=== PATIENT | female | born 1940 | race Caucasian/White ===

== ENCOUNTER 2019-02-05 11:00 | Inpatient (IN) | payer MEDICARE, MEDICAID ==
[~2019-02-05] VITALS: Ht 165.1 cm; Wt 50.3 kg
[2019-02-05] MEDS ORDERED: SOD CHLORIDE 0.9% 1,000 ML IV STA (11:07)
[2019-02-05] MEDS ORDERED: HALOPERIDOL 5 MG INJ ONE (11:09)
[2019-02-05] MEDS ORDERED: HALOPERIDOL 5 MG INJ IV ONE (11:30)
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
[2019-02-05] MEDS ORDERED: ACETAMINOPHEN 325 MG TAB PO PRN ×2 (14:00→16:00)
[2019-02-05] MEDS ORDERED: ONDANSETRON 4 MG INJ IV PRN ×2 (14:00→16:00)
[2019-02-05] MEDS ORDERED: LORAZEPAM 2 MG INJ IV ONE (14:00)
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
[2019-02-05] MEDS ORDERED: DOCUSATE SODIUM 100 MG CAP PO PRN (16:00)
[2019-02-05] MEDS ORDERED: LORAZEPAM 2 MG INJ IV PRN ×2 (16:00→17:00)
[2019-02-05] MEDS ORDERED: MAGNESIUM HYDROXIDE 30ML CUP PO PRN (16:00)
[2019-02-05] MEDS ORDERED: NACL 0.9% 3 ML SYG IV SCH (16:00)
[2019-02-05 18:43] VITALS: BP 123/68; PULSE 66; RESP 18
[2019-02-05 20:00] VITALS: BP 156/83; PULSE 123; RESP 20; Ht 165.1 cm; Wt 50.3 kg
[2019-02-05] MEDS: DEXTROSE 5%-0.45% NACL 1,000 ML IV SCH (20:14)
[2019-02-05] MEDS: FAMOTIDINE 20 MG INJ IV SCH (20:17)
[2019-02-05] MEDS: CHLORHEXIDINE GLUCONATE 15 ML UD CUP MT SCH (20:17)
[2019-02-05 23:49] VITALS: BP 155/95; PULSE 130; RESP 20
[2019-02-06] MEDS: ACETAMINOPHEN 650 MG SUPP PR PRN (00:53)
[2019-02-06] MEDS ORDERED: VANCOMYCIN IV PER PHARMACY XX SCH (03:30)
[2019-02-06] MEDS: LEVOFLOXACIN 750MG/D5W (PMX) 150 ML IVPB SCH (03:38)
[2019-02-06 04:00] VITALS: BP 112/64; PULSE 115; RESP 20
[2019-02-06] MEDS ORDERED: VANCOMYCIN 1 GM 250 ML IVPB ONE (05:00)
[2019-02-06] MEDS: DEXTROSE 5%-0.45% NACL 1,000 ML IV SCH ×2 (05:48→15:24)
[2019-02-06] MEDS ORDERED: SOD CHLORIDE 0.9% 500 ML IV ONE (07:00)
[2019-02-06 07:40] VITALS: BP 116/92; PULSE 100; RESP 18
[2019-02-06] MEDS: CHLORHEXIDINE GLUCONATE 15 ML UD CUP MT SCH ×2 (08:12→21:08)
[2019-02-06] MEDS: ENOXAPARIN 40 MG/0.4 ML SYG SC SCH (08:15)
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
--- NOTE | 2019-02-06 10:09 | CONS ---
DATE OF ADMISSION: 02/05/2019 DATE OF CONSULTATION: 02/06/2019 TYPE OF CONSULTATION: Infectious Disease. REASON FOR CONSULTATION: Antibiotic management. HISTORY OF PRESENT ILLNESS: Elizabeth Nelson is an 78-year-old female with altered level of consciousness, po ssible seizure activity. She presents to the emergency room. She is to set disheveled and neglected according to the EMS. The patient does not have a known seizure disorder. She has a history of dem entia. Further history is extremely limited. PAST MEDICAL HISTORY: Positive for dementia. FAMILY HISTORY: Noncontributory. SOCIAL HISTORY: She does not smoke, drink or abuse drugs. ALLERGIES: NONE TO PENICILLIN, SULFA OR FOODS. MEDICATIONS: Per chart. REVIEW OF SYSTEMS: As per HPI. PHYSICAL EXAMINATION: GENERAL: She is cachectic, agitated, elderly female. VITAL SIGNS: Stable. She is afebrile. SKIN: Without generalized rash. HEENT: Within normal limits. She has an abrasion on her right lower lip. NECK: Supple. LYMPH NODES: None palpable. CHEST: Decreased breath sounds at the bases. HEART: Without murmur or gallop. ABDOMEN: Soft, nontender, without organosplenomegaly or masses. EXTREMITIES: Without cyanosis, clubbing, or edema. RECTAL AND GENITAL: Deferred. NEUROLOGIC: The patient has dementia. No focal deficits. ANCILLARY LABORATORY DATA: On admission, white count 6.9, H and H 11.9 and 34.1, platelet count 136, 000. BUN and creatinine 18/0.81, glucose of 136. She has 69% neutrophils. IMAGING: Chest x-ray shows clear lung rhodes with no evidence of pneumothorax. CT of the brain show s severe motion artifact, no evidence of acute intracranial abnormality. IMPRESSION AND PLAN: Altered levels of consciousness. Her urine is negative for leukocyte esterase and for nitrites. At this point, She was placed on vancomycin and Levaquin for the possibility of se psis and I imagine possible aspiration pneumonia; however, there is no evidence right now for that. We will continue her on vancomycin and Levaquin for the time being. Blood cultures were ordered. Ur ine culture was ordered. We will observe the patient. Dictated By: URSZULA ALTAMIRANO MD, JD/BRITTNEY Conf#: [id number] DID#: [id number] CC: NICHOLAS VALENCIA MD;*[facility]*
[2019-02-06 11:26] VITALS: BP 121/59; PULSE 100; RESP 19
--- NOTE | 2019-02-06 12:24 | PN ---
Date/Time of Note Date/Time of Note DATE: 02/06/19 TIME: 12:19 Assessment/Plan VTE Prophylaxis Risk score (from [facility])>0 risk: 4 SCD applied (from Ns): Yes Pharmacological prophylaxis: LMWH Lines/Catheters IV Catheter Type (from [facility]): Saline Lock Assessment/Plan Assessment/Plan 1. Acute encephalopathy- improving - Unsure etiology but patient did spike a fever and hanson cultures obtained. Sta rted on broad spectrum antibiotics - Neurology consultation appreciated. MRI pending and requesting LP as well - monitor for improvement in mental status 2. Anemia- stable - hgb stable 3. Alzheimer's dementia 4. Code status - discussion held with granddaughter and requesting patient be made DNR/DNI 5. Disposition - Awaiting MRI and repeat CT results pending. Continue current plan of care Result Diagram: 02/06/1914 02/06/1914 Results 24hrs Laboratory Tests Test 02/05/19 16:15 02/06/19 05:14 Urine Color YELLOW Urine Clarity SLIGHTLY CLOUDY A Urine pH 5.0 Urine Specific [place] 1.015 Urine Ketones NEGATIVE Urine Nitrite NEGATIVE Urine Bilirubin NEGATIVE Urine Urobilinogen NEGATIVE Urine Leukocyte Esterase NEGATIVE Urine Microscopic RBC 1 Urine Microscopic WBC 1 Urine Bacteria FEW A Urine Mucus FEW A Urine Hemoglobin NEGATIVE Urine Glucose NEGATIVE Urine Total Protein NEGATIVE Urine Opiates Screen Negative Urine Barbiturates Negative Urine Amphetamines Screen Negative Urine Benzodiazepines Screen Negative Urine Cocaine Screen Negative Urine Cannabinoids Negative White Blood Count 9.7 # Red Blood Count 3.78 L Hemoglobin 12.3 Hematocrit 34.7 L Mean Corpuscular Volume 91.8 Mean Corpuscular Hemoglobin 32.5 Mean Corpuscular Hemoglobin Concent 35.4 Red Cell Distribution Width 12.3 Platelet Count 105 #L Mean Platelet Volume 11.2 H Immature Granulocytes % 0.700 H Neutrophils % 88.0 H Lymphocytes % 6.2 L Monocytes % 4.8 Eosinophils % 0.1 Basophils % 0.2 Nucleated Red Blood Cells % 0.0 Immature Granulocytes # 0.070 H Neutrophils # 8.6 H Lymphocytes # 0.6 L Monocytes # 0.5 Eosinophils # 0.0 Basophils # 0.0 Nucleated Red Blood Cells # 0.0 Sodium Level 140 Potassium Level 4.8 Chloride Level 107 Carbon Dioxide Level 24 Anion Gap 9 Blood Urea Nitrogen 16 Creatinine 0.84 Est Glomerular Filtrat Rate mL/min Glucose Level 140 Lactic Acid Level 4.3 *H Calcium Level 8.6 Magnesium Level 1.9 Subjective 24 Hr Interval Summary Free Text/Dictation Patient responding im okay when asked how she is feeling. Not answering any further questions or following commands. Exam/Review of Systems Exam Vitals Vital Signs Date Temp Pulse Resp B/P (MAP) Pulse Ox O2 O2 Flow FiO2 Time Delivery Rate 02/06/19 98.1 100 19 121/59 96 11:26 (79) 02/06/19 Nasal 2.0 07:50 Cannula Intake and Output 02/05/19 02/05/19 02/06/19 1515:00 23:00 07:00 IntakeIntake Total 0 ml BalanceBalance 0 ml Exam General: No acute distress. frail, cachetic elderly lady with arms contracted Neck: Supple Chest: Nontender Lungs: Clear to auscultation bilaterally no crackles rales or wheezing Heart: Normal S1-S2, Regular rhythm and tachycardia. No murmur, S3, or S4 Abdomen: Soft , nontender to palpation, nondistended , bowel sounds are present. No guarding no rebound tenderness Extremities: muscle wasting Results Results 24hrs Laboratory Tests Test 02/05/19 16:15 02/06/19 05:14 Urine Color YELLOW Urine Clarity SLIGHTLY CLOUDY A Urine pH 5.0 Urine Specific [place] 1.015 Urine Ketones NEGATIVE Urine Nitrite NEGATIVE Urine Bilirubin NEGATIVE Urine Urobilinogen NEGATIVE Urine Leukocyte Esterase NEGATIVE Urine Microscopic RBC 1 Urine Microscopic WBC 1 Urine Bacteria FEW A Urine Mucus FEW A Urine Hemoglobin NEGATIVE Urine Glucose NEGATIVE Urine Total Protein NEGATIVE Urine Opiates Screen Negative Urine Barbiturates Negative Urine Amphetamines Screen Negative Urine Benzodiazepines Screen Negative Urine Cocaine Screen Negative Urine Cannabinoids Negative White Blood Count 9.7 # Red Blood Count 3.78 L Hemoglobin 12.3 Hematocrit 34.7 L Mean Corpuscular Volume 91.8 Mean Corpuscular Hemoglobin 32.5 Mean Corpuscular Hemoglobin Concent 35.4 Red Cell Distribution Width 12.3 Platelet Count 105 #L Mean Platelet Volume 11.2 H Immature Granulocytes % 0.700 H Neutrophils % 88.0 H Lymphocytes % 6.2 L Monocytes % 4.8 Eosinophils % 0.1 Basophils % 0.2 Nucleated Red Blood Cells % 0.0 Immature Granulocytes # 0.070 H Neutrophils # 8.6 H Lymphocytes # 0.6 L Monocytes # 0.5 Eosinophils # 0.0 Basophils # 0.0 Nucleated Red Blood Cells # 0.0 Sodium Level 140 Potassium Level 4.8 Chloride Level 107 Carbon Dioxide Level 24 Anion Gap 9 Blood Urea Nitrogen 16 Creatinine 0.84 Est Glomerular Filtrat Rate mL/min Glucose Level 140 Lactic Acid Level 4.3 *H Calcium Level 8.6 Magnesium Level 1.9 Medications Medication Current Medications Ondansetron HCl (Zofran Inj) 4 mg ER BRIDGE PRN IV NAUSEA/VOMITING; Start 02/05/19 at 14:00; Stop 02/06/19 at 13:59 Acetaminophen (Tylenol Tab) 650 mg ER BRIDGE PRN PO .MILD PAIN 1-3 OR TEMP; Start 02/05/19 at 14:00; Stop 02/06/19 at 13:59 Dextrose/Sodium Chloride 1,000 ml @ 75 mls/hr [id number] IV Last administered on 02/06/19at 05:48; Admin Dose 75 MLS/HR; Start 02/05/19 at 15:42 IV Flush (NS 3 ml) 3 ml PER PROTOCOL IV ; Start 02/05/19 at 16:00 Ondansetron HCl (Zofran Inj) 4 mg Q6H PRN IV NAUSEA/VOMITING; Start 02/05/19 at 16:00 Acetaminophen (Tylenol Tab) 650 mg Q6H PRN PO .PAIN 1-3 OR TEMP; Start 02/05/19 at 16:00 Docusate Sodium (Colace) 100 mg Q12H PRN PO .CONSTIPATION; Start 02/05/19 at 16:00 Magnesium Hydroxide (Milk Of Mag) 30 ml DAILY PRN PO .CONSTIPATION; Start 02/05/19 at 16:00 Famotidine (Pepcid Iv) 20 mg Q24H IV Last administered on 02/05/19at 20:17; Admin Dose 20 MG; Start 02/05/19 at 21:00 Enoxaparin Sodium (Lovenox) 40 mg DAILY SC Last administered on 02/06/19at 08:15; Admin Dose 40 MG; Start 02/06/19 at 09:00 Chlorhexidine Gluconate (Peridex) 15 ml BID MT Last administered on 02/06/19at 08:12; Admin Dose 15 ML; Start 02/05/19 at 21:00 Lorazepam (Ativan) 1 mg Q10MIN PRN IV seizures; Start 02/05/19 at 17:00 Acetaminophen (Tylenol Supp) 650 mg Q6H PRN DE FEVER Last administered on 02/06/19at 00:53; Admin Dose 650 MG; Start 02/06/19 at 00:00 Vancomycin HCl (Vanco Iv Per Pharmacy) VANCOMYCIN PER PHARMACY PER PROTOCOL XX ; Start 02/06/19 at 03:30 Levofloxacin/ Dextrose 150 ml @ 100 mls/hr Q24H IVPB Last administered on 02/06/19at 03:38; Admin Dose 100 MLS/HR; Start 02/06/19 at 03:30 Vancomycin/Sodium Chloride 250 ml @ 125 mls/hr Q24H IVPB ; Start 02/07/19 at 05:00 Miscellaneous Information (*Rx Drug Level Order Reminder*) VANCOMYCIN TROUGH LEVEL 0400 ONCE XX ; Start 02/09/19 at 04:00; Stop 02/09/19 at 04:01 NICHOLAS VALENCIA MD Feb 06, 2019 12:24
[2019-02-06 15:32] VITALS: BP 129/61; PULSE 100; RESP 18
[2019-02-06 20:00] VITALS: BP 118/65; PULSE 106; RESP 20
[2019-02-06] MEDS: FAMOTIDINE 20 MG INJ IV SCH (21:08)
[2019-02-07] VITALS (7 sets, daily range): BP systolic 119–147; BP diastolic 60–94; PULSE 91–111; RESP 18–20
[2019-02-07] MEDS: LEVOFLOXACIN 750MG/D5W (PMX) 150 ML IVPB SCH (03:49)
[2019-02-07] MEDS: DEXTROSE 5%-0.45% NACL 1,000 ML IV SCH ×2 (03:56→22:00)
[2019-02-07] MEDS: VANCOMYCIN 750 MG (PMX) 250 ML IVPB SCH (05:22)
[2019-02-07] MEDS ORDERED: SOD CHLORIDE 0.9% 500 ML IV ONE (07:30)
[2019-02-07] MEDS: CHLORHEXIDINE GLUCONATE 15 ML UD CUP MT SCH ×2 (08:35→21:28)
[2019-02-07] MEDS: ENOXAPARIN 40 MG/0.4 ML SYG SC SCH (08:38)
--- NOTE | 2019-02-07 10:38 | PN ---
Date/Time of Note Date/Time of Note DATE: 02/07/19 TIME: 10:33 Assessment/Plan VTE Prophylaxis Risk score (from Ns)>0 risk: 4 SCD applied (from Ns): Yes Pharmacological prophylaxis: LMWH Lines/Catheters IV Catheter Type (from Nrs): Saline Lock Assessment/Plan Assessment/Plan 1. Acute encephalopathy - patient alert and smiling this am but not responding to questions or following commands - Neuro on board and aware of inability to do LP and MRI. - EEG results pending to determine if patient did have a seizure prior to admission - Lactic acid elevated but cultures negative. ID on board for assistance 2. Anemia- stable - hgb stable 3. Alzheimer's dementia 4. Disposition - Awaiting EEG results and monitor for further fevers. Trending lactic acid - Speech to reevaluate tomorrow . continue NPO and IVF for now Result Diagram: 02/07/19 0459 02/07/19 0459 Results 24hrs Laboratory Tests Test 02/06/19 14:09 02/07/19 04:59 Lactic Acid Level 3.8 *H 2.3 *H White Blood Count 7.5 # Red Blood Count 3.32 L Hemoglobin 10.8 L Hematocrit 30.4 L Mean Corpuscular Volume 91.6 Mean Corpuscular Hemoglobin 32.5 Mean Corpuscular Hemoglobin Concent 35.5 Red Cell Distribution Width 12.2 Platelet Count 87 L Mean Platelet Volume 11.3 H Immature Granulocytes % 0.500 H Neutrophils % 86.5 H Lymphocytes % 6.9 L Monocytes % 5.6 Eosinophils % 0.4 Basophils % 0.1 Nucleated Red Blood Cells % 0.0 Immature Granulocytes # 0.040 H Neutrophils # 6.5 Lymphocytes # 0.5 L Monocytes # 0.4 Eosinophils # 0.0 Basophils # 0.0 Nucleated Red Blood Cells # 0.0 Sodium Level 138 Potassium Level 4.2 Chloride Level 106 Carbon Dioxide Level 23 Anion Gap 9 Blood Urea Nitrogen 11 Creatinine 0.81 Glucose Level 136 Calcium Level 8.5 Phosphorus Level 2.9 Magnesium Level 1.9 Albumin 3.1 L Subjective 24 Hr Interval Summary Free Text/Dictation Patient awake and smiling this am. Not responding to questions but when asked if okay, nodded head. Unable to obtain LP and MRI. Exam/Review of Systems Exam Vitals Vital Signs Date Temp Pulse Resp B/P (MAP) Pulse Ox O2 O2 Flow FiO2 Time Delivery Rate 02/07/19 Nasal 2.0 07:38 Cannula 02/07/19 97.8 111 18 133/66 96 07:21 (88) Intake and Output 02/06/19 02/06/19 02/07/19 1515:00 23:00 07:00 IntakeIntake Total 1150 ml BalanceBalance 1150 ml Exam General: Alert, No acute distress. frail, cachetic elderly woman. smiling this am Neck: Supple Chest: Nontender Lungs: Clear to auscultation bilaterally no crackles rales or wheezing Heart: Normal S1-S2, Regular rhythm and tachycardia. No murmur, S3, or S4 Abdomen: Soft , nontender to palpation, nondistended , bowel sounds are present. No guarding no rebound tenderness Extremities: muscle wasting Results Results 24hrs Laboratory Tests Test 02/06/19 14:09 02/07/19 04:59 Lactic Acid Level 3.8 *H 2.3 *H White Blood Count 7.5 # Red Blood Count 3.32 L Hemoglobin 10.8 L Hematocrit 30.4 L Mean Corpuscular Volume 91.6 Mean Corpuscular Hemoglobin 32.5 Mean Corpuscular Hemoglobin Concent 35.5 Red Cell Distribution Width 12.2 Platelet Count 87 L Mean Platelet Volume 11.3 H Immature Granulocytes % 0.500 H Neutrophils % 86.5 H Lymphocytes % 6.9 L Monocytes % 5.6 Eosinophils % 0.4 Basophils % 0.1 Nucleated Red Blood Cells % 0.0 Immature Granulocytes # 0.040 H Neutrophils # 6.5 Lymphocytes # 0.5 L Monocytes # 0.4 Eosinophils # 0.0 Basophils # 0.0 Nucleated Red Blood Cells # 0.0 Sodium Level 138 Potassium Level 4.2 Chloride Level 106 Carbon Dioxide Level 23 Anion Gap 9 Blood Urea Nitrogen 11 Creatinine 0.81 Glucose Level 136 Calcium Level 8.5 Phosphorus Level 2.9 Magnesium Level 1.9 Albumin 3.1 L Medications Medication Current Medications Dextrose/Sodium Chloride 1,000 ml @ 75 mls/hr [id number] IV Last administered on 02/07/19at 03:56; Admin Dose 75 MLS/HR; Start 02/05/19 at 15:42 IV Flush (NS 3 ml) 3 ml PER PROTOCOL IV ; Start 02/05/19 at 16:00 Ondansetron HCl (Zofran Inj) 4 mg Q6H PRN IV NAUSEA/VOMITING; Start 02/05/19 at 16:00 Acetaminophen (Tylenol Tab) 650 mg Q6H PRN PO .PAIN 1-3 OR TEMP; Start 02/05/19 at 16:00 Docusate Sodium (Colace) 100 mg Q12H PRN PO .CONSTIPATION; Start 02/05/19 at 16:00 Magnesium Hydroxide (Milk Of Mag) 30 ml DAILY PRN PO .CONSTIPATION; Start 02/05/19 at 16:00 Famotidine (Pepcid Iv) 20 mg Q24H IV Last administered on 02/06/19at 21:08; Admin Dose 20 MG; Start 02/05/19 at 21:00 Enoxaparin Sodium (Lovenox) 40 mg DAILY SC Last administered on 02/07/19at 08:38 ; Admin Dose 40 MG; Start 02/06/19 at 09:00 Chlorhexidine Gluconate (Peridex) 15 ml BID MT Last administered on 02/07/19at 08:35; Admin Dose 15 ML; Start 02/05/19 at 21:00 Lorazepam (Ativan) 1 mg Q10MIN PRN IV seizures; Start 02/05/19 at 17:00 Acetaminophen (Tylenol Supp) 650 mg Q6H PRN [place] FEVER Last administered on 02/06/19at 00:53; Admin Dose 650 MG; Start 02/06/19 at 00:00 Vancomycin HCl (Vanco Iv Per Pharmacy) VANCOMYCIN PER PHARMACY PER PROTOCOL XX ; Start 02/06/19 at 03:30 Levofloxacin/ Dextrose 150 ml @ 100 mls/hr Q24H IVPB Last administered on 02/07/19at 03:49; Admin Dose 100 MLS/HR; Start 02/06/19 at 03:30 Vancomycin/Sodium Chloride 250 ml @ 125 mls/hr Q24H IVPB Last administered on 02/07/19at 05:22; Admin Dose 125 MLS/HR; Start 02/07/19 at 05:00 Miscellaneous Information (*Rx Drug Level Order Reminder*) VANCOMYCIN TROUGH LEVEL 0400 ONCE XX ; Start 02/09/19 at 04:00; Stop 02/09/19 at 04:01 NICHOLAS VALENCIA MD Feb 07, 2019 10:37
--- NOTE | 2019-02-07 14:41 | CONS ---
Assessment/Plan Assessment/Plan Hospital Course (Demo Recall) Patient is awake confused in no distress she had been afebrile since yesterday WBC today 7.5 neutrophils 86.5 BUN 11 creatinine 0.81 lactic acid 1.8 Urinalysis was negative for nitrite leukocyte Estrace Blood and urine cultures negative MRSA swab negative Chest x-ray on admission revealed no evidence of acute abnormalities CT of the brain revealed no evidence of acute intracranial abnormality Antimicrobials: Patient is on IV vancomycin and Levaquin Allergy: Rocephin Physical examination: This is a well-developed fragile elderly woman who is awake in no distress head atraumatic normocephalic neck is supple chest rise symmetrical breath sounds diminished bases heart S1-S2 abdomen soft bowel sounds present extremities without cyanosis Assessment: 1. Acute encephalopathy with fevers, present on admission 2. Dementia Plan: Patient is clinically stable afebrile and so far all cultures and diagnostics are negative, she is being followed by neurology, pending EEG results, will keep her on antibiotics for now and check procalcitonin level Consultation Date/Type/Reason Admit Date/Time Feb 05, 2019 at 13:45 Initial Consult Date Type of Consult id Requesting Provider: NICHOLAS VALENCIA MD Date/Time of Note DATE: 02/07/19 TIME: 14:40 Exam/Review of Systems Exam Vitals Vital Signs Date Temp Pulse Resp B/P (MAP) Pulse Ox O2 O2 Flow FiO2 Time Delivery Rate 02/07/19 97.8 103 18 141/94 95 Room Air 11:05 (110) 02/07/19 2.0 07:38 Intake and Output 02/06/19 02/06/19 02/07/19 1515:00 23:00 07:00 IntakeIntake Total 1150 ml BalanceBalance 1150 ml Results Result Diagram: 02/07/19 0459 02/07/19 0459 Results 24hrs Laboratory Tests Test 02/07/19 04:59 02/07/19 12:12 White Blood Count 7.5 # Red Blood Count 3.32 L Hemoglobin 10.8 L Hematocrit 30.4 L Mean Corpuscular Volume 91.6 Mean Corpuscular Hemoglobin 32.5 Mean Corpuscular Hemoglobin Concent 35.5 Red Cell Distribution Width 12.2 Platelet Count 87 L Mean Platelet Volume 11.3 H Immature Granulocytes % 0.500 H Neutrophils % 86.5 H Lymphocytes % 6.9 L Monocytes % 5.6 Eosinophils % 0.4 Basophils % 0.1 Nucleated Red Blood Cells % 0.0 Immature Granulocytes # 0.040 H Neutrophils # 6.5 Lymphocytes # 0.5 L Monocytes # 0.4 Eosinophils # 0.0 Basophils # 0.0 Nucleated Red Blood Cells # 0.0 Sodium Level 138 Potassium Level 4.2 Chloride Level 106 Carbon Dioxide Level 23 Anion Gap 9 Blood Urea Nitrogen 11 Creatinine 0.81 Glucose Level 136 Lactic Acid Level 2.3 *H 1.8 Calcium Level 8.5 Phosphorus Level 2.9 Magnesium Level 1.9 Albumin 3.1 L Medications Medication Current Medications Dextrose/Sodium Chloride 1,000 ml @ 75 mls/hr [id number] IV Last administered on 02/07/19at 03:56; Admin Dose 75 MLS/HR; Start 02/05/19 at 15:42 IV Flush (NS 3 ml) 3 ml PER PROTOCOL IV ; Start 02/05/19 at 16:00 Ondansetron HCl (Zofran Inj) 4 mg Q6H PRN IV NAUSEA/VOMITING; Start 02/05/19 at 16:00 Acetaminophen (Tylenol Tab) 650 mg Q6H PRN PO .PAIN 1-3 OR TEMP; Start 02/05/19 at 16:00 Docusate Sodium (Colace) 100 mg Q12H PRN PO .CONSTIPATION; Start 02/05/19 at 16:00 Magnesium Hydroxide (Milk Of Mag) 30 ml DAILY PRN PO .CONSTIPATION; Start 02/05/19 at 16:00 Famotidine (Pepcid Iv) 20 mg Q24H IV Last administered on 02/06/19at 21:08; Admin Dose 20 MG; Start 02/05/19 at 21:00 Enoxaparin Sodium (Lovenox) 40 mg DAILY SC Last administered on 02/07/19at 08:38; Admin Dose 40 MG; Start 02/06/19 at 09:00 Chlorhexidine Gluconate (Peridex) 15 ml BID MT Last administered on 02/07/19at 08:35; Admin Dose 15 ML; Start 02/05/19 at 21:00 Lorazepam (Ativan) 1 mg Q10MIN PRN IV seizures; Start 02/05/19 at 17:00 Acetaminophen (Tylenol Supp) 650 mg Q6H PRN [place] FEVER Last administered on 02/06/19at 00:53; Admin Dose 650 MG; Start 02/06/19 at 00:00 Vancomycin HCl (Vanco Iv Per Pharmacy) VANCOMYCIN PER PHARMACY PER PROTOCOL XX ; Start 02/06/19 at 03:30 Levofloxacin/ Dextrose 150 ml @ 100 mls/hr Q24H IVPB Last administered on 02/07/19at 03:49; Admin Dose 100 MLS/HR; Start 02/06/19 at 03:30 Vancomycin/Sodium Chloride 250 ml @ 125 mls/hr Q24H IVPB Last administered on 02/07/19at 05:22; Admin Dose 125 MLS/HR; Start 02/07/19 at 05:00 Miscellaneous Information (*Rx Drug Level Order Reminder*) VANCOMYCIN TROUGH LEVEL 0400 ONCE XX ; Start 02/09/19 at 04:00; Stop 02/09/19 at 04:01 FABIEN SAUCEDO NP Feb 07, 2019 14:41
[2019-02-07] MEDS: FAMOTIDINE 20 MG INJ IV SCH (21:28)
[2019-02-08 03:30] VITALS: BP 152/82; PULSE 100; RESP 18
[2019-02-08] MEDS: VANCOMYCIN 750 MG (PMX) 250 ML IVPB SCH (04:29)
[2019-02-08] MEDS: LEVOFLOXACIN 750MG/D5W (PMX) 150 ML IVPB SCH (04:29)
[2019-02-08 07:47] VITALS: BP 133/63; PULSE 104; RESP 16
[2019-02-08] MEDS: CHLORHEXIDINE GLUCONATE 15 ML UD CUP MT SCH ×2 (08:33→20:28)
[2019-02-08] MEDS: ENOXAPARIN 40 MG/0.4 ML SYG SC SCH (08:39)
[2019-02-08] MEDS: DEXTROSE 5%-0.45% NACL 1,000 ML IV SCH ×2 (10:27→23:42)
[2019-02-08 11:29] VITALS: BP 139/83; PULSE 104; RESP 16
--- NOTE | 2019-02-08 12:17 | CONS ---
Assessment/Plan Assessment/Plan Assessment/Plan (Recall) 78 F c/ advanced dementia, who presents for evaluation of heightened ams and seizure-like activity...for which neurology is consulted.. Noted to febrile on presentation, without obvious systemic source noted.. The clinical picture was most ominously concerning for encephalitis...However, she has shown early clinical improvement w/ modest empiric therapies, which is somewhat uncharacteristic.. Recent stroke as a nidus for seizure is additionally considered.. CT Head is unrevealing EEG was without epileptiform activity. CXR neg UA neg BCx NGTD P: MRI brain w/ and w/o contrast for further characterization when medically able OK to defer CSF evaluation for now [place] able Limit sedation where possible PT/OT/ST as necessary Other management and supportive care per primary Will follow clinically Consultation Date/Type/Reason Admit Date/Time Feb 05, 2019 at 13:45 Type of Consult Neurology Reason for Consultation ams, seizure-like activity Requesting Provider: NICHOLAS VALENCIA MD Date/Time of Note DATE: 02/08/19 TIME: 12:08 24 HR Interval Summary Free Text/Dictation Continues acute care Exam/Review of Systems Exam Vitals Vital Signs Date Temp Pulse Resp B/P (MAP) Pulse Ox O2 O2 Flow FiO2 Time Delivery Rate 02/08/19 97.6 104 16 139/83 95 11:29 (101) 02/08/19 Nasal 2.0 07:32 Cannula Intake and Output 02/07/19 02/07/19 02/08/19 1515:00 23:00 07:00 IntakeIntake Total 1400 ml 1150 ml OutputOutput Total 3 ml BalanceBalance 1397 ml 1150 ml Exam PE: Gen Appearance: No Apparent Distress HEENT: Normocephalic Cardiovascular: Regular rate Abdomen: Soft Extremities: Dry NE: The patient was alert, sparsely verbal, oriented to self.. Cranial nerve examination was limited by mental status. Pupils were equal and reactive to light. There was no afferent pupillary defect. Funduscopic examination was limited. Face was grossly symmetric, w/ present corneal and cough reflexes. Tone was normal. Muscle bulk was normal. I did not see fasciculations. The patient moved her limbs spontaneously..symmetrically. Coordination and gait testing was limited by mental status. Arm and leg reflexes were symmetric. Guy's sign was absent. Plantar responses were flexor. Results Result Diagram: 02/08/19 0455 02/08/19 0455 Results 24hrs Laboratory Tests Test 02/07/19 12:12 02/07/19 15:14 02/08/19 04:55 Lactic Acid Level 1.8 Procalcitonin 0.68 H White Blood Count 6.2 Red Blood Count 3.30 L Hemoglobin 10.5 L Hematocrit 29.7 L Mean Corpuscular Volume 90.0 Mean Corpuscular Hemoglobin 31.8 Mean Corpuscular Hemoglobin Concent 35.4 Red Cell Distribution Width 12.3 Platelet Count 88 L Mean Platelet Volume 11.1 H Immature Granulocytes % 0.600 H Neutrophils % 78.1 H Lymphocytes % 12.9 L Monocytes % 5.8 Eosinophils % 2.3 Basophils % 0.3 Nucleated Red Blood Cells % 0.0 Immature Granulocytes # 0.040 H Neutrophils # 4.8 Lymphocytes # 0.8 Monocytes # 0.4 Eosinophils # 0.1 Basophils # 0.0 Nucleated Red Blood Cells # 0.0 Sodium Level 138 Potassium Level 3.5 Chloride Level 107 Carbon Dioxide Level 21 Anion Gap 10 Blood Urea Nitrogen 8 Creatinine 0.70 Glucose Level 133 Calcium Level 8.3 L Phosphorus Level 3.2 Magnesium Level 1.9 Albumin 3.2 L Medications Medication Current Medications Dextrose/Sodium Chloride 1,000 ml @ 75 mls/hr [id number] IV Last administered on 02/08/19at 10:27; Admin Dose 75 MLS/HR; Start 02/05/19 at 15:42 IV Flush (NS 3 ml) 3 ml PER PROTOCOL IV ; Start 02/05/19 at 16:00 Ondansetron HCl (Zofran Inj) 4 mg Q6H PRN IV NAUSEA/VOMITING; Start 02/05/19 at 16:00 Acetaminophen (Tylenol Tab) 650 mg Q6H PRN PO .PAIN 1-3 OR TEMP; Start 02/05/19 at 16:00 Docusate Sodium (Colace) 100 mg Q12H PRN PO .CONSTIPATION; Start 02/05/19 at 16:00 Magnesium Hydroxide (Milk Of Mag) 30 ml DAILY PRN PO .CONSTIPATION; Start 02/05/19 at 16:00 Famotidine (Pepcid Iv) 20 mg Q24H IV Last administered on 02/07/19at 21:28; Admin Dose 20 MG; Start 02/05/19 at 21:00 Enoxaparin Sodium (Lovenox) 40 mg DAILY SC Last administered on 02/08/19at 08:39; Admin Dose 40 MG; Start 02/06/19 at 09:00 Chlorhexidine Gluconate (Peridex) 15 ml BID MT Last administered on 02/08/19at 08:33; Admin Dose 15 ML; Start 02/05/19 at 21:00 Lorazepam (Ativan) 1 mg Q10MIN PRN IV seizures; Start 02/05/19 at 17:00 Acetaminophen (Tylenol Supp) 650 mg Q6H PRN [place] FEVER Last administered on 02/06/19at 00:53; Admin Dose 650 MG; Start 02/06/19 at 00:00 Vancomycin HCl (Vanco Iv Per Pharmacy) VANCOMYCIN PER PHARMACY PER PROTOCOL XX ; Start 02/06/19 at 03:30 Levofloxacin/ Dextrose 150 ml @ 100 mls/hr Q24H IVPB Last administered on 02/08/19at 04:29; Admin Dose 100 MLS/HR; Start 02/06/19 at 03:30 Vancomycin/Sodium Chloride 250 ml @ 125 mls/hr Q24H IVPB Last administered on 02/08/19at 04:29; Admin Dose 125 MLS/HR; Start 02/07/19 at 05:00 Miscellaneous Information (*Rx Drug Level Order Reminder*) VANCOMYCIN TROUGH LEVEL 0400 ONCE XX ; Start 02/09/19 at 04:00; Stop 02/09/19 at 04:01 CHAPARRO DELCID Feb 08, 2019 12:17
--- NOTE | 2019-02-08 12:45 | PN ---
Date/Time of Note Date/Time of Note DATE: 02/08/19 TIME: 12:45 Objective Vitals Vital Signs Date Temp Pulse Resp B/P (MAP) Pulse Ox O2 O2 Flow FiO2 Time Delivery Rate 02/08/19 97.6 104 16 139/83 95 11:29 (101) 02/08/19 Nasal 2.0 07:32 Cannula Intake and Output 02/07/19 02/07/19 02/08/19 1515:00 23:00 07:00 IntakeIntake Total 1400 ml 1150 ml OutputOutput Total 3 ml BalanceBalance 1397 ml 1150 ml Results Result Diagram: 02/08/19 0455 02/08/19 0455 Medications Medications Current Medications Dextrose/Sodium Chloride 1,000 ml @ 75 mls/hr [id number] IV Last administered on 02/08/19at 10:27; Admin Dose 75 MLS/HR; Start 02/05/19 at 15:42 IV Flush (NS 3 ml) 3 ml PER PROTOCOL IV ; Start 02/05/19 at 16:00 Ondansetron HCl (Zofran Inj) 4 mg Q6H PRN IV NAUSEA/VOMITING; Start 02/05/19 at 16:00 Acetaminophen (Tylenol Tab) 650 mg Q6H PRN PO .PAIN 1-3 OR TEMP; Start 02/05/19 at 16:00 Docusate Sodium (Colace) 100 mg Q12H PRN PO .CONSTIPATION; Start 02/05/19 at 16:00 Magnesium Hydroxide (Milk Of Mag) 30 ml DAILY PRN PO .CONSTIPATION; Start 02/05/19 at 16:00 Famotidine (Pepcid Iv) 20 mg Q24H IV Last administered on 02/07/19at 21:28; Admin Dose 20 MG; Start 02/05/19 at 21:00 Enoxaparin Sodium (Lovenox) 40 mg DAILY SC Last administered on 02/08/19at 08:39; Admin Dose 40 MG; Start 02/06/19 at 09:00 Chlorhexidine Gluconate (Peridex) 15 ml BID MT Last administered on 02/08/19at 08:33; Admin Dose 15 ML; Start 02/05/19 at 21:00 Lorazepam (Ativan) 1 mg Q10MIN PRN IV seizures; Start 02/05/19 at 17:00 Acetaminophen (Tylenol Supp) 650 mg Q6H PRN [place] FEVER Last administered on 02/06/19at 00:53; Admin Dose 650 MG; Start 02/06/19 at 00:00 Vancomycin HCl (Vanco Iv Per Pharmacy) VANCOMYCIN PER PHARMACY PER PROTOCOL XX ; Start 02/06/19 at 03:30 Levofloxacin/ Dextrose 150 ml @ 100 mls/hr Q24H IVPB Last administered on 02/08/19at 04:29; Admin Dose 100 MLS/HR; Start 02/06/19 at 03:30 Vancomycin/Sodium Chloride 250 ml @ 125 mls/hr Q24H IVPB Last administered on 02/08/19at 04:29; Admin Dose 125 MLS/HR; Start 02/07/19 at 05:00 Miscellaneous Information (*Rx Drug Level Order Reminder*) VANCOMYCIN TROUGH LEVEL 0400 ONCE XX ; Start 02/09/19 at 04:00; Stop 02/09/19 at 04:01 VTE Prophylaxis Risk score (from [facility])>0 risk: 6 SCD applied (from [facility] [place]): Yes Lines/Catheters IV Catheter Type: Finch in Place: No Assessment/Plan Hospital Course Subjective Patient does respond to, does also have severe confusion does not respond appropriately at all times however there are times when she does respond appropriately. Objective Physical exam General: Patient is laying in bed and answers questions occasionally Mentation: Patient is alert and oriented to self at times, Head: Normocephalic atraumatic Eyes: EOMI, pupils reactive to light Neck: Supple, nontender, midline Respiratory: Clear to auscultation bilaterally Cardiovascular: regular rate, no obvious murmurs Gastrointestinal: non-tender to palpation, bowel sounds heard. Neurological: Moves all extremities spontaneously Skin: No new skin lesions Assessment and plan Acute encephalopathy -Neurology feels less likely encephalitis at this point, considerations do include recent CVA versus other viral issue -Due to possibility of recent stroke causing these issues, neurology not recommending aspirin, will give aspirin via rectum until patient passes swallow study. If per rectum neurology would like patient to be on 300 per rectum today, then 100 daily afterwards due awkward dosing of aspirin rectal suppository, when patient passes swallow study, neurology would like 81 mg orally daily. -cont emperic IV abx -EEG per neurology noted -Okay to defer LP for now per neurology -MRI when patient able to tolerate fevers -Possibly secondary to above -Continue empiric treatment with IV antibiotics per infectious disease Anemia -Hemoglobin stable, monitor Alzheimer's dementia -Appears to be fairly severe, vp digital marketing social media and crm on board for numerous family issues Disposition -Follow-up with infectious disease and neurology recommendations ROBINSON MCALLISTER Feb 08, 2019 12:45
[2019-02-08] MEDS ORDERED: ASPIRIN 300 MG SUPP PR SCH (13:00)
--- NOTE | 2019-02-08 13:25 | EEG ---
EEG NOTE Report Details DATE OF TEST: 02/05/2019 HISTORY: The patient is a 78-year-old F who presents with altered mental status and seizure-like activity. This EEG is requested to evaluate for an epileptic disorder. SEDATION: None. CONDITIONS OF RECORDING: This EEG was recorded digitally on the [employer] machine, using the International 10-20 System of electrodes plus anterior temporals and [place]. STATES SAMPLED: Lethargic. FINDINGS: The background is continuous and grossly symmetric...predominated by polymorphic theta and delta activity. A well-formed posterior dominant rhythm is absent. The normal [id number] frequency-amplitude gradient was absent. Photic stimulation does not elicit any definite driving responses or epileptiform discharges. Hyperventilation was not performed. No asymmetries, focal abnormalities or epileptiform discharges were seen. IMPRESSION: Abnormal electroencephalogram due to: diffuse slowing. COMMENT: The slowing of the background indicates diffuse cortical dysfunction of nonspecific etiology. CHAPARRO DELCID Feb 08, 2019 13:25
--- NOTE | 2019-02-08 15:16 | CONS ---
Assessment/Plan Assessment/Plan Hospital Course (Demo Recall) Patient is awake more responsive afebrile. T-max 99.8. WBC 6.2 neutrophils 78.1 BUN 8 creatinine 0.7. Procalcitonin 0.68 Blood and urine cultures negative MRSA swab negative Chest x-ray on admission revealed no evidence of acute abnormalities CT of the brain revealed no evidence of acute intracranial abnormality Antimicrobials: Patient is on IV vancomycin and Levaquin Allergy: Rocephin Physical examination: This is a well-developed fragile elderly woman who is awake in no distress head atraumatic normocephalic neck is supple chest rise symmetrical breath sounds diminished bases heart S1-S2 abdomen soft bowel sounds present extremities without cyanosis Assessment: 1. Acute encephalopathy with fevers, present on admission 2. Dementia Plan: Clinically stable, more awake, given elevated procalcitonin and the fact that she is improving we will keep her on current antibiotics, f/u neurology rec-s, pending brain MRI Consultation Date/Type/Reason Admit Date/Time Feb 05, 2019 at 13:45 Initial Consult Date Type of Consult id Requesting Provider: NICHOLAS VALENCIA MD Date/Time of Note DATE: 02/08/19 TIME: 15:14 Exam/Review of Systems Exam Vitals Vital Signs Date Temp Pulse Resp B/P (MAP) Pulse Ox O2 O2 Flow FiO2 Time Delivery Rate 02/08/19 97.6 104 16 139/83 95 11:29 (101) 02/08/19 Nasal 2.0 07:32 Cannula Intake and Output 02/07/19 02/07/19 02/08/19 1515:00 23:00 07:00 IntakeIntake Total 1400 ml 1150 ml OutputOutput Total 3 ml BalanceBalance 1397 ml 1150 ml Results Result Diagram: 02/08/19 0455 02/08/19 0455 Results 24hrs Laboratory Tests Test 02/08/19 04:55 White Blood Count 6.2 Red Blood Count 3.30 L Hemoglobin 10.5 L Hematocrit 29.7 L Mean Corpuscular Volume 90.0 Mean Corpuscular Hemoglobin 31.8 Mean Corpuscular Hemoglobin Concent 35.4 Red Cell Distribution Width 12.3 Platelet Count 88 L Mean Platelet Volume 11.1 H Immature Granulocytes % 0.600 H Neutrophils % 78.1 H Lymphocytes % 12.9 L Monocytes % 5.8 Eosinophils % 2.3 Basophils % 0.3 Nucleated Red Blood Cells % 0.0 Immature Granulocytes # 0.040 H Neutrophils # 4.8 Lymphocytes # 0.8 Monocytes # 0.4 Eosinophils # 0.1 Basophils # 0.0 Nucleated Red Blood Cells # 0.0 Sodium Level 138 Potassium Level 3.5 Chloride Level 107 Carbon Dioxide Level 21 Anion Gap 10 Blood Urea Nitrogen 8 Creatinine 0.70 Glucose Level 133 Calcium Level 8.3 L Phosphorus Level 3.2 Magnesium Level 1.9 Albumin 3.2 L Medications Medication Current Medications Dextrose/Sodium Chloride 1,000 ml @ 75 mls/hr [id number] IV Last administered on 02/08/19at 10:27; Admin Dose 75 MLS/HR; Start 02/05/19 at 15:42 IV Flush (NS 3 ml) 3 ml PER PROTOCOL IV ; Start 02/05/19 at 16:00 Ondansetron HCl (Zofran Inj) 4 mg Q6H PRN IV NAUSEA/VOMITING; Start 02/05/19 at 16:00 Acetaminophen (Tylenol Tab) 650 mg Q6H PRN PO .PAIN 1-3 OR TEMP; Start 02/05/19 at 16:00 Docusate Sodium (Colace) 100 mg Q12H PRN PO .CONSTIPATION; Start 02/05/19 at 16:00 Magnesium Hydroxide (Milk Of Mag) 30 ml DAILY PRN PO .CONSTIPATION; Start 02/05/19 at 16:00 Famotidine (Pepcid Iv) 20 mg Q24H IV Last administered on 02/07/19at 21:28; Admin Dose 20 MG; Start 02/05/19 at 21:00 Enoxaparin Sodium (Lovenox) 40 mg DAILY SC Last administered on 02/08/19at 08:39; Admin Dose 40 MG; Start 02/06/19 at 09:00 Chlorhexidine Gluconate (Peridex) 15 ml BID MT Last administered on 02/08/19at 08:33; Admin Dose 15 ML; Start 02/05/19 at 21:00 Lorazepam (Ativan) 1 mg Q10MIN PRN IV seizures; Start 02/05/19 at 17:00 Acetaminophen (Tylenol Supp) 650 mg Q6H PRN [place] FEVER Last administered on 02/06/19at 00:53; Admin Dose 650 MG; Start 02/06/19 at 00:00 Vancomycin HCl (Vanco Iv Per Pharmacy) VANCOMYCIN PER PHARMACY PER PROTOCOL XX ; Start 02/06/19 at 03:30 Levofloxacin/ Dextrose 150 ml @ 100 mls/hr Q24H IVPB Last administered on 02/08/19at 04:29; Admin Dose 100 MLS/HR; Start 02/06/19 at 03:30 Vancomycin/Sodium Chloride 250 ml @ 125 mls/hr Q24H IVPB Last administered on 02/08/19at 04:29; Admin Dose 125 MLS/HR; Start 02/07/19 at 05:00 Miscellaneous Information (*Rx Drug Level Order Reminder*) VANCOMYCIN TROUGH LEVEL 0400 ONCE XX ; Start 02/09/19 at 04:00; Stop 02/09/19 at 04:01 Aspirin (Aspirin) 300 mg ONCE NE Last administered on 02/08/19at 13:04; Admin Dose 300 MG; Start 02/08/19 at 13:00; Stop 02/08/19 at 23:00 Aspirin (Aspirin) 100 mg DAILY NE ; Start 02/09/19 at 09:00 FABIEN SAUCEDO NP Feb 08, 2019 15:16
[2019-02-08 15:50] VITALS: BP 141/71; PULSE 74; RESP 15
[2019-02-08 19:28] VITALS: BP 150/44; PULSE 102; RESP 18
[2019-02-08] MEDS: FAMOTIDINE 20 MG INJ IV SCH (20:28)
[2019-02-09 00:16] VITALS: BP 135/86; PULSE 82; RESP 18
[2019-02-09] MEDS ORDERED: LEVOFLOXACIN 500MG/D5W (PMX) 100 ML IVPB SCH (04:00)
[2019-02-09 04:16] VITALS: BP 130/64; PULSE 98; RESP 20
[2019-02-09] MEDS: VANCOMYCIN 750 MG (PMX) 250 ML IVPB SCH (05:33)
[2019-02-09 07:10] VITALS: BP 165/79; PULSE 104; RESP 17
[2019-02-09] MEDS ORDERED: POTASSIUM CHLORIDE 100 ML IVPB ONE (07:30)
[2019-02-09] MEDS: ASPIRIN 300 MG SUPP PR SCH (09:04)
[2019-02-09] MEDS: CHLORHEXIDINE GLUCONATE 15 ML UD CUP MT SCH ×2 (09:04→21:49)
[2019-02-09] MEDS: ENOXAPARIN 40 MG/0.4 ML SYG SC SCH (09:11)
[2019-02-09] MEDS ORDERED: POTASSIUM CHLORIDE 50 ML IVPB ONE (10:00)
[2019-02-09 11:05] VITALS: BP 142/80; PULSE 98; RESP 16
--- NOTE | 2019-02-09 13:17 | CONS ---
Assessment/Plan Assessment/Plan Assessment/Plan (Recall) 78 F c/ advanced dementia, who presents for evaluation of heightened ams and seizure-like activity...for which neurology is consulted.. Noted to febrile on presentation, without obvious systemic source noted.. The clinical picture was most ominously concerning for encephalitis...However, she has shown early clinical improvement w/ modest empiric therapies, which is somewhat uncharacteristic.. Recent stroke as a nidus for seizure is additionally considered.. CT Head is unrevealing EEG was without epileptiform activity. CXR neg UA neg BCx NGTD P: MRI brain w/ and w/o contrast for further characterization when medically able Agree w/ asa daily for now [place] able Limit sedation where possible PT/OT/ST as necessary Other management and supportive care per primary Will follow clinically Consultation Date/Type/Reason Admit Date/Time Feb 05, 2019 at 13:45 Type of Consult Neurology Reason for Consultation ams, seizure-like activity Requesting Provider: NICHOLAS VALENCIA MD Date/Time of Note DATE: 02/09/19 TIME: 13:17 24 HR Interval Summary Free Text/Dictation Continues acute care Exam/Review of Systems Exam Vitals Vital Signs Date Temp Pulse Resp B/P (MAP) Pulse Ox O2 O2 Flow FiO2 Time Delivery Rate 02/09/19 98.1 98 16 142/80 98 11:05 (100) 02/09/19 Nasal 2.0 09:55 Cannula Intake and Output 02/08/19 02/08/19 02/09/19 1515:00 23:00 07:00 OutputOutput Total 1 ml 1 ml BalanceBalance -1 ml -1 ml Results Result Diagram: 02/09/19 0356 02/09/19 0501 Results 24hrs Laboratory Tests Test 02/09/19 03:56 02/09/19 05:01 White Blood Count 4.9 # Red Blood Count 3.02 L Hemoglobin 10.0 L Hematocrit 27.0 L Mean Corpuscular Volume 89.4 Mean Corpuscular Hemoglobin 33.1 H Mean Corpuscular Hemoglobin Concent 37.0 Red Cell Distribution Width 12.2 Platelet Count 88 L Mean Platelet Volume 10.6 H Immature Granulocytes % 0.600 H Neutrophils % 69.5 Lymphocytes % 16.5 Monocytes % 8.7 Eosinophils % 4.3 Basophils % 0.4 Nucleated Red Blood Cells % 0.0 Immature Granulocytes # 0.030 Neutrophils # 3.4 Lymphocytes # 0.8 Monocytes # 0.4 Eosinophils # 0.2 Basophils # 0.0 Nucleated Red Blood Cells # 0.0 Sodium Level 139 Potassium Level 2.9 *L 3.1 L Chloride Level 105 Carbon Dioxide Level 27 Anion Gap 7 Blood Urea Nitrogen 7 Creatinine 0.76 Glucose Level 118 Calcium Level 8.1 L Phosphorus Level 3.3 Magnesium Level 1.7 Albumin 3.0 L Vancomycin Level Trough 5.8 L Medications Medication Current Medications Dextrose/Sodium Chloride 1,000 ml @ 75 mls/hr [id number] IV Last administered on 02/08/19at 10:27; Admin Dose 75 MLS/HR; Start 02/05/19 at 15:42 IV Flush (NS 3 ml) 3 ml PER PROTOCOL IV ; Start 02/05/19 at 16:00 Ondansetron HCl (Zofran Inj) 4 mg Q6H PRN IV NAUSEA/VOMITING; Start 02/05/19 at 16:00 Acetaminophen (Tylenol Tab) 650 mg Q6H PRN PO .PAIN 1-3 OR TEMP; Start 02/05/19 at 16:00 Docusate Sodium (Colace) 100 mg Q12H PRN PO .CONSTIPATION; Start 02/05/19 at 16:00 Magnesium Hydroxide (Milk Of Mag) 30 ml DAILY PRN PO .CONSTIPATION; Start 02/05/19 at 16:00 Famotidine (Pepcid Iv) 20 mg Q24H IV Last administered on 02/08/19at 20:28; Admin Dose 20 MG; Start 02/05/19 at 21:00 Enoxaparin Sodium (Lovenox) 40 mg DAILY SC Last administered on 02/09/19at 09:11; Admin Dose 40 MG; Start 02/06/19 at 09:00 Chlorhexidine Gluconate (Peridex) 15 ml BID MT Last administered on 02/09/19at 09:04; Admin Dose 15 ML; Start 02/05/19 at 21:00 Lorazepam (Ativan) 1 mg Q10MIN PRN IV seizures; Start 02/05/19 at 17:00 Acetaminophen (Tylenol Supp) 650 mg Q6H PRN [place] FEVER Last administered on 02/06/19at 00:53; Admin Dose 650 MG; Start 02/06/19 at 00:00 Vancomycin HCl (Vanco Iv Per Pharmacy) VANCOMYCIN PER PHARMACY PER PROTOCOL XX ; Start 02/06/19 at 03:30 Aspirin (Aspirin) 100 mg DAILY DC Last administered on 02/09/19at 09:04; Admin Dose 100 MG; Start 02/09/19 at 09:00 Levofloxacin/ Dextrose 100 ml @ 100 mls/hr Q24H IVPB Last administered on 02/09/19at 03:40; Admin Dose 100 MLS/HR; Start 02/09/19 at 04:00 Vancomycin/Sodium Chloride 250 ml @ 125 mls/hr Q12H IVPB ; Start 02/09/19 at 17:00 CHAPARRO DELCID Feb 09, 2019 13:17
[2019-02-09] MEDS: DEXTROSE 5%-0.45% NACL 1,000 ML IV SCH (14:02)
--- NOTE | 2019-02-09 14:41 | CONS ---
Assessment/Plan Assessment/Plan Hospital Course (Demo Recall) Patient is awake, looks comfortable, afebrile. Blood and urine cultures negative MRSA swab negative Chest x-ray on admission revealed no evidence of acute abnormalities CT of the brain revealed no evidence of acute intracranial abnormality Antimicrobials: Patient is on IV vancomycin and Levaquin Allergy: Rocephin Physical examination: This is a well-developed fragile elderly woman who is awake in no distress head atraumatic normocephalic neck is supple chest rise symmetrical breath sounds diminished bases heart S1-S2 abdomen soft bowel sounds present extremities without cyanosis Assessment: 1. Acute encephalopathy with fevers, present on admission 2. Dementia Plan: Clinically stable, will dc abx and observe Consultation Date/Type/Reason Admit Date/Time Feb 05, 2019 at 13:45 Initial Consult Date Type of Consult id Requesting Provider: NICHOLAS VALENCIA MD Date/Time of Note DATE: 02/09/19 TIME: 14:40 Exam/Review of Systems Exam Vitals Vital Signs Date Temp Pulse Resp B/P (MAP) Pulse Ox O2 O2 Flow FiO2 Time Delivery Rate 02/09/19 98.1 98 16 142/80 98 11:05 (100) 02/09/19 Nasal 2.0 09:55 Cannula Intake and Output 02/08/19 02/08/19 02/09/19 1515:00 23:00 07:00 OutputOutput Total 1 ml 1 ml BalanceBalance -1 ml -1 ml Results Result Diagram: 02/09/19 0356 02/09/19 0501 Results 24hrs Laboratory Tests Test 02/09/19 03:56 02/09/19 05:01 White Blood Count 4.9 # Red Blood Count 3.02 L Hemoglobin 10.0 L Hematocrit 27.0 L Mean Corpuscular Volume 89.4 Mean Corpuscular Hemoglobin 33.1 H Mean Corpuscular Hemoglobin Concent 37.0 Red Cell Distribution Width 12.2 Platelet Count 88 L Mean Platelet Volume 10.6 H Immature Granulocytes % 0.600 H Neutrophils % 69.5 Lymphocytes % 16.5 Monocytes % 8.7 Eosinophils % 4.3 Basophils % 0.4 Nucleated Red Blood Cells % 0.0 Immature Granulocytes # 0.030 Neutrophils # 3.4 Lymphocytes # 0.8 Monocytes # 0.4 Eosinophils # 0.2 Basophils # 0.0 Nucleated Red Blood Cells # 0.0 Sodium Level 139 Potassium Level 2.9 *L 3.1 L Chloride Level 105 Carbon Dioxide Level 27 Anion Gap 7 Blood Urea Nitrogen 7 Creatinine 0.76 Glucose Level 118 Calcium Level 8.1 L Phosphorus Level 3.3 Magnesium Level 1.7 Albumin 3.0 L Vancomycin Level Trough 5.8 L Medications Medication Current Medications Dextrose/Sodium Chloride 1,000 ml @ 75 mls/hr [id number] IV Last administered on 02/08/19at 10:27; Admin Dose 75 MLS/HR; Start 02/05/19 at 15:42 IV Flush (NS 3 ml) 3 ml PER PROTOCOL IV ; Start 02/05/19 at 16:00 Ondansetron HCl (Zofran Inj) 4 mg Q6H PRN IV NAUSEA/VOMITING; Start 02/05/19 at 16:00 Acetaminophen (Tylenol Tab) 650 mg Q6H PRN PO .PAIN 1-3 OR TEMP; Start 02/05/19 at 16:00 Docusate Sodium (Colace) 100 mg Q12H PRN PO .CONSTIPATION; Start 02/05/19 at 16:00 Magnesium Hydroxide (Milk Of Mag) 30 ml DAILY PRN PO .CONSTIPATION; Start 02/05/19 at 16:00 Famotidine (Pepcid Iv) 20 mg Q24H IV Last administered on 02/08/19at 20:28; Admin Dose 20 MG; Start 02/05/19 at 21:00 Enoxaparin Sodium (Lovenox) 40 mg DAILY SC Last administered on 02/09/19at 09:11; Admin Dose 40 MG; Start 02/06/19 at 09:00 Chlorhexidine Gluconate (Peridex) 15 ml BID MT Last administered on 02/09/19at 09:04; Admin Dose 15 ML; Start 02/05/19 at 21:00 Lorazepam (Ativan) 1 mg Q10MIN PRN IV seizures; Start 02/05/19 at 17:00 Acetaminophen (Tylenol Supp) 650 mg Q6H PRN [place] FEVER Last administered on 02/06/19at 00:53; Admin Dose 650 MG; Start 02/06/19 at 00:00 Vancomycin HCl (Vanco Iv Per Pharmacy) VANCOMYCIN PER PHARMACY PER PROTOCOL XX ; Start 02/06/19 at 03:30 Aspirin (Aspirin) 100 mg DAILY [place] Last administered on 7/2/19at 09:04; Admin Dose 100 MG; Start 02/09/19 at 09:00 Levofloxacin/ Dextrose 100 ml @ 100 mls/hr Q24H IVPB Last administered on 02/09/19at 03:40; Admin Dose 100 MLS/HR; Start 02/09/19 at 04:00 Vancomycin/Sodium Chloride 250 ml @ 125 mls/hr Q12H IVPB ; Start 02/09/19 at 17:00 FABIEN SAUCEDO NP Feb 09, 2019 14:41
[2019-02-09 15:09] VITALS: BP 142/71; PULSE 92; RESP 18
--- NOTE | 2019-02-09 16:11 | PN ---
Date/Time of Note Date/Time of Note DATE: 02/09/19 TIME: 16:09 Objective Vitals Vital Signs Date Temp Pulse Resp B/P (MAP) Pulse Ox O2 O2 Flow FiO2 Time Delivery Rate 02/09/19 98.3 92 18 142/71 98 15:09 (94) 02/09/19 Nasal 2.0 09:55 Cannula Intake and Output 02/08/19 02/08/19 02/09/19 1515:00 23:00 07:00 OutputOutput Total 1 ml 1 ml BalanceBalance -1 ml -1 ml Results Result Diagram: 02/09/19 0356 02/09/19 0501 Medications Medications Current Medications Dextrose/Sodium Chloride 1,000 ml @ 75 mls/hr [id number] IV Last administered on 02/08/19at 10:27; Admin Dose 75 MLS/HR; Start 02/05/19 at 15:42 IV Flush (NS 3 ml) 3 ml PER PROTOCOL IV ; Start 02/05/19 at 16:00 Ondansetron HCl (Zofran Inj) 4 mg Q6H PRN IV NAUSEA/VOMITING; Start 02/05/19 at 16:00 Acetaminophen (Tylenol Tab) 650 mg Q6H PRN PO .PAIN 1-3 OR TEMP; Start 02/05/19 at 16:00 Docusate Sodium (Colace) 100 mg Q12H PRN PO .CONSTIPATION; Start 02/05/19 at 16:00 Magnesium Hydroxide (Milk Of Mag) 30 ml DAILY PRN PO .CONSTIPATION; Start 02/05/19 at 16:00 Famotidine (Pepcid Iv) 20 mg Q24H IV Last administered on 02/08/19at 20:28; Admin Dose 20 MG; Start 02/05/19 at 21:00 Enoxaparin Sodium (Lovenox) 40 mg DAILY SC Last administered on 02/09/19at 09:11; Admin Dose 40 MG; Start 02/06/19 at 09:00 Chlorhexidine Gluconate (Peridex) 15 ml BID MT Last administered on 02/09/19at 09:04; Admin Dose 15 ML; Start 02/05/19 at 21:00 Lorazepam (Ativan) 1 mg Q10MIN PRN IV seizures; Start 02/05/19 at 17:00 Acetaminophen (Tylenol Supp) 650 mg Q6H PRN [place] FEVER Last administered on 02/06/19at 00:53; Admin Dose 650 MG; Start 02/06/19 at 00:00 Aspirin (Aspirin) 100 mg DAILY [place] Last administered on 02/09/19at 09:04; Admin Dose 100 MG; Start 02/09/19 at 09:00 VTE Prophylaxis Risk score (from [facility] [place])>0 risk: 5 SCD applied (from [facility] [place]): No SCD contraindication: other Lines/Catheters IV Catheter Type: Finch in Place: No Assessment/Plan Hospital Course Subjective Patient is back to baseline mentation per family members Objective Physical exam General: Patient is laying in bed and answers questions occasionally Mentation: Patient is alert and oriented to self at times, Head: Normocephalic atraumatic Eyes: EOMI, pupils reactive to light Neck: Supple, nontender, midline Respiratory: Clear to auscultation bilaterally Cardiovascular: regular rate, no obvious murmurs Gastrointestinal: non-tender to palpation, bowel sounds heard. Neurological: Moves all extremities spontaneously Skin: No new skin lesions Assessment and plan Acute encephalopathy, resolved, patient back at baseline per family -Neurology feels less likely encephalitis at this point, considerations do include recent CVA versus other viral issue -Due to possibility of recent stroke causing these issues, neurology not recommending aspirin, will give aspirin via rectum until patient passes swallow study. 100mg DE daily due to awkward dosing of aspirin rectal suppository, when patient passes swallow study, neurology would like 81 mg orally daily. -cont emperic IV abx -EEG per neurology noted -Okay to defer LP for now per neurology -MRI when patient able to tolerate, currently moves too much fevers -Possibly secondary to above -Continue empiric treatment with IV antibiotics per infectious disease -Resolving Chronic contractures -Patient at baseline with chronic contractures, wound care as needed Anemia -Hemoglobin stable, monitor Alzheimer's dementia -Appears to be fairly severe, clinical social worker on board for numerous family issues Disposition -Follow-up with infectious disease and neurology recommendations -Patient work-up to continue, will need to work-up current inability to eat before discharge home. ROBINSON MCALLISTER Feb 09, 2019 16:11
[2019-02-09] MEDS ORDERED: VANCOMYCIN 750 MG (PMX) 250 ML IVPB SCH (17:00)
[2019-02-09 20:00] VITALS: BP 139/87; PULSE 98; RESP 18
[2019-02-09] MEDS: FAMOTIDINE 20 MG INJ IV SCH (21:49)
[2019-02-10] VITALS: BP 158/68; PULSE 94; RESP 19
[2019-02-10] MEDS: DEXTROSE 5%-0.45% NACL 1,000 ML IV SCH ×2 (02:26→15:43)
[2019-02-10 03:32] VITALS: BP 133/78; PULSE 79; RESP 18
[2019-02-10 07:25] VITALS: BP 154/71; PULSE 88; RESP 19
[2019-02-10] MEDS: CHLORHEXIDINE GLUCONATE 15 ML UD CUP MT SCH ×2 (08:43→22:03)
[2019-02-10] MEDS: FAMOTIDINE 20 MG INJ IV SCH ×2 (08:44→22:02)
[2019-02-10] MEDS: ENOXAPARIN 40 MG/0.4 ML SYG SC SCH (09:00)
[2019-02-10] MEDS: ASPIRIN 300 MG SUPP PR SCH (09:00)
--- NOTE | 2019-02-10 11:08 | CONS ---
Assessment/Plan Assessment/Plan Hospital Course (Demo Recall) No acute events, looks comfortable Blood and urine cultures negative MRSA swab negative Chest x-ray 02/09 showed atelectasis versus minimal infiltrates in the left lower lobe CT of the brain revealed no evidence of acute intracranial abnormality Antimicrobials: Patient is on IV vancomycin and Levaquin Allergy: Rocephin Physical examination: This is a well-developed fragile elderly woman who is awake in no distress head atraumatic normocephalic neck is supple chest rise symmetrical breath sounds diminished bases heart S1-S2 abdomen soft bowel sounds present extremities without cyanosis Assessment: 1. Acute encephalopathy with fevers, present on admission 2. Dementia 3. PNA Plan: Clinically stable, cxr noted, restart Levaquin, f/u neurology rec-s, aspiration precautions Consultation Date/Type/Reason Admit Date/Time Feb 05, 2019 at 13:45 Initial Consult Date Type of Consult id Requesting Provider: NICHOLAS VALENCIA MD Date/Time of Note DATE: 02/10/19 TIME: 11:05 Exam/Review of Systems Exam Vitals Vital Signs Date Temp Pulse Resp B/P (MAP) Pulse Ox O2 O2 Flow FiO2 Time Delivery Rate 02/10/19 98.2 88 19 154/71 98 Room Air 07:25 (98) 02/09/19 2.0 20:00 Intake and Output 02/09/19 02/09/19 02/10/19 1515:00 23:00 07:00 OutputOutput Total 2 ml BalanceBalance -2 ml Results Result Diagram: 02/10/19 0933 02/10/19 0517 Results 24hrs Laboratory Tests Test 02/10/19 05:17 02/10/19 05:18 02/10/19 09:33 Sodium Level 138 Potassium Level 3.6 Chloride Level 104 Carbon Dioxide Level 27 Anion Gap 7 Blood Urea Nitrogen 6 L Creatinine 0.69 Est Glomerular Filtrat Rate mL/min Glucose Level 115 Calcium Level 8.1 L Phosphorus Level 3.8 Magnesium Level 1.8 White Blood Count 3.6 #L Red Blood Count 2.64 L Hemoglobin 8.7 L 9.4 L Hematocrit 24.2 L 26.6 L Mean Corpuscular Volume 91.7 Mean Corpuscular Hemoglobin 33.0 Mean Corpuscular Hemoglobin Concent 36.0 Red Cell Distribution Width 12.1 Platelet Count 86 L Mean Platelet Volume 10.6 H Immature Granulocytes % 0.600 H Neutrophils % 58.9 Lymphocytes % 21.8 Monocytes % 12.0 H Eosinophils % 6.1 Basophils % 0.6 Nucleated Red Blood Cells % 0.0 Immature Granulocytes # 0.020 Neutrophils # 2.1 Lymphocytes # 0.8 Monocytes # 0.4 Eosinophils # 0.2 Basophils # 0.0 Nucleated Red Blood Cells # 0.0 Medications Medication Current Medications Dextrose/Sodium Chloride 1,000 ml @ 75 mls/hr [id number] IV Last administered on 02/10/19 02:26; Admin Dose 75 MLS/HR; Start 02/05/19 at 15:42 IV Flush (NS 3 ml) 3 ml PER PROTOCOL IV ; Start 02/05/19 at 16:00 Ondansetron HCl (Zofran Inj) 4 mg Q6H PRN IV NAUSEA/VOMITING; Start 02/05/19 at 16:00 Acetaminophen (Tylenol Tab) 650 mg Q6H PRN PO .PAIN 1-3 OR TEMP; Start 02/05/19 at 16:00 Docusate Sodium (Colace) 100 mg Q12H PRN PO .CONSTIPATION; Start 02/05/19 at 16:00 Magnesium Hydroxide (Milk Of Mag) 30 ml DAILY PRN PO .CONSTIPATION; Start 02/05/19 at 16:00 Enoxaparin Sodium (Lovenox) 40 mg DAILY SC Last administered on 02/09/19at 09:11; Admin Dose 40 MG; Start 02/06/19 at 09:00 Chlorhexidine Gluconate (Peridex) 15 ml BID MT Last administered on 02/10/19at 08:43; Admin Dose 15 ML; Start 02/05/19 at 21:00 Lorazepam (Ativan) 1 mg Q10MIN PRN IV seizures; Start 02/05/19 at 17:00 Acetaminophen (Tylenol Supp) 650 mg Q6H PRN [place] FEVER Last administered on 02/06/19at 00:53; Admin Dose 650 MG; Start 02/06/19 at 00:00 Aspirin (Aspirin) 100 mg DAILY [place] Last administered on 02/09/19 09:04; Admin Dose 100 MG; Start 02/09/19 at 09:00 Famotidine (Pepcid Iv) 20 mg BID IV Last administered on 02/10/19 08:44; Admin Dose 20 MG; Start 02/09/19 at 21:00 FABIEN SAUCEDO NP Feb 10, 2019 11:08
--- NOTE | 2019-02-10 11:08 | CONS ---
Assessment/Plan Assessment/Plan Assessment/Plan (Recall) 78 F c/ advanced dementia, who presents for evaluation of heightened ams and seizure-like activity...for which neurology is consulted.. Noted to febrile on presentation, without obvious systemic source noted.. The clinical picture was most ominously concerning for encephalitis...However, she has shown early clinical improvement w/ modest empiric therapies, which is somewhat uncharacteristic.. Recent stroke as a nidus for seizure is additionally considered.. CT Head is unrevealing EEG was without epileptiform activity. CXR neg, UA neg, BCx NGTD Patient is currently unable to tolerated MRI brain P: Agree w/ asa daily for now [place] able Limit sedation where possible PT/OT/ST as necessary Other management and supportive care per primary Will follow clinically Consultation Date/Type/Reason Admit Date/Time Feb 05, 2019 at 13:45 Type of Consult Neurology Reason for Consultation ams, seizure-like activity Requesting Provider: NICHOLAS VALENCIA MD Date/Time of Note DATE: 02/10/19 TIME: 11:07 24 HR Interval Summary Free Text/Dictation Continues acute care Exam/Review of Systems Exam Vitals Vital Signs Date Temp Pulse Resp B/P (MAP) Pulse Ox O2 O2 Flow FiO2 Time Delivery Rate 02/10/19 98.2 88 19 154/71 98 Room Air 07:25 (98) 02/09/19 2.0 20:00 Intake and Output 02/09/19 02/09/19 02/10/19 1515:00 23:00 07:00 OutputOutput Total 2 ml BalanceBalance -2 ml Results Result Diagram: 02/10/19 0933 02/10/19 0517 Results 24hrs Laboratory Tests Test 02/10/19 05:17 02/10/19 05:18 02/10/19 09:33 Sodium Level 138 Potassium Level 3.6 Chloride Level 104 Carbon Dioxide Level 27 Anion Gap 7 Blood Urea Nitrogen 6 L Creatinine 0.69 Est Glomerular Filtrat Rate mL/min Glucose Level 115 Calcium Level 8.1 L Phosphorus Level 3.8 Magnesium Level 1.8 White Blood Count 3.6 #L Red Blood Count 2.64 L Hemoglobin 8.7 L 9.4 L Hematocrit 24.2 L 26.6 L Mean Corpuscular Volume 91.7 Mean Corpuscular Hemoglobin 33.0 Mean Corpuscular Hemoglobin Concent 36.0 Red Cell Distribution Width 12.1 Platelet Count 86 L Mean Platelet Volume 10.6 H Immature Granulocytes % 0.600 H Neutrophils % 58.9 Lymphocytes % 21.8 Monocytes % 12.0 H Eosinophils % 6.1 Basophils % 0.6 Nucleated Red Blood Cells % 0.0 Immature Granulocytes # 0.020 Neutrophils # 2.1 Lymphocytes # 0.8 Monocytes # 0.4 Eosinophils # 0.2 Basophils # 0.0 Nucleated Red Blood Cells # 0.0 Medications Medication Current Medications Dextrose/Sodium Chloride 1,000 ml @ 75 mls/hr [id number] IV Last administered on 02/10/19at 02:26; Admin Dose 75 MLS/HR; Start 02/05/19 at 15:42 IV Flush (NS 3 ml) 3 ml PER PROTOCOL IV ; Start 02/05/19 at 16:00 Ondansetron HCl (Zofran Inj) 4 mg Q6H PRN IV NAUSEA/VOMITING; Start 02/05/19 at 16:00 Acetaminophen (Tylenol Tab) 650 mg Q6H PRN PO .PAIN 1-3 OR TEMP; Start 02/05/19 at 16:00 Docusate Sodium (Colace) 100 mg Q12H PRN PO .CONSTIPATION; Start 02/05/19 at 16:00 Magnesium Hydroxide (Milk Of Mag) 30 ml DAILY PRN PO .CONSTIPATION; Start 02/05/19 at 16:00 Enoxaparin Sodium (Lovenox) 40 mg DAILY SC Last administered on 02/09/19at 09:11; Admin Dose 40 MG; Start 02/06/19 at 09:00 Chlorhexidine Gluconate (Peridex) 15 ml BID MT Last administered on 02/10/19at 08:43; Admin Dose 15 ML; Start 02/05/19 at 21:00 Lorazepam (Ativan) 1 mg Q10MIN PRN IV seizures; Start 02/05/19 at 17:00 Acetaminophen (Tylenol Supp) 650 mg Q6H PRN [place] FEVER Last administered on 02/06/19at 00:53; Admin Dose 650 MG; Start 02/06/19 at 00:00 Aspirin (Aspirin) 100 mg DAILY CA Last administered on 02/09/19at 09:04; Admin Dose 100 MG; Start 02/09/19 at 09:00 Famotidine (Pepcid Iv) 20 mg BID IV Last administered on 02/10/19at 08:44; Admin Dose 20 MG; Start 02/09/19 at 21:00 Levofloxacin/ Dextrose 100 ml @ 100 mls/hr Q24H IVPB ; Start 02/10/19 at 11:30; Status CHAPARRO JOHNSON Feb 10, 2019 11:08
[2019-02-10 11:25] VITALS: BP 155/75; PULSE 82; RESP 18
--- NOTE | 2019-02-10 13:06 | PN ---
Date/Time of Note Date/Time of Note DATE: 02/10/19 TIME: 13:06 Objective Vitals Vital Signs Date Temp Pulse Resp B/P (MAP) Pulse Ox O2 O2 Flow FiO2 Time Delivery Rate 02/10/19 97.7 82 18 155/75 98 Room Air 11:25 (101) 02/09/19 2.0 20:00 Intake and Output 02/09/19 02/09/19 02/10/19 1515:00 23:00 07:00 OutputOutput Total 2 ml BalanceBalance -2 ml Results Result Diagram: 02/10/19 0933 02/10/19 0517 Medications Medications Current Medications Dextrose/Sodium Chloride 1,000 ml @ 75 mls/hr [id number] IV Last administered on 02/10/19at 02:26; Admin Dose 75 MLS/HR; Start 02/05/19 at 15:42 IV Flush (NS 3 ml) 3 ml PER PROTOCOL IV ; Start 02/05/19 at 16:00 Ondansetron HCl (Zofran Inj) 4 mg Q6H PRN IV NAUSEA/VOMITING; Start 02/05/19 at 16:00 Acetaminophen (Tylenol Tab) 650 mg Q6H PRN PO .PAIN 1-3 OR TEMP; Start 02/05/19 at 16:00 Docusate Sodium (Colace) 100 mg Q12H PRN PO .CONSTIPATION; Start 02/05/19 at 16:00 Magnesium Hydroxide (Milk Of Mag) 30 ml DAILY PRN PO .CONSTIPATION; Start 02/05/19 at 16:00 Enoxaparin Sodium (Lovenox) 40 mg DAILY SC Last administered on 02/09/19at 09:11; Admin Dose 40 MG; Start 02/06/19 at 09:00 Chlorhexidine Gluconate (Peridex) 15 ml BID MT Last administered on 02/10/19at 08:43; Admin Dose 15 ML; Start 02/05/19 at 21:00 Lorazepam (Ativan) 1 mg Q10MIN PRN IV seizures; Start 02/05/19 at 17:00 Acetaminophen (Tylenol Supp) 650 mg Q6H PRN [place] FEVER Last administered on 02/06/19at 00:53; Admin Dose 650 MG; Start 02/06/19 at 00:00 Aspirin (Aspirin) 100 mg DAILY [place] Last administered on 02/09/19at 09:04; Admin Dose 100 MG; Start 02/09/19 at 09:00 Famotidine (Pepcid Iv) 20 mg BID IV Last administered on 02/10/19at 08:44; Admin Dose 20 MG; Start 02/09/19 at 21:00 Levofloxacin/ Dextrose 100 ml @ 100 mls/hr Q24H IVPB ; Start 02/10/19 at 11:30 VTE Prophylaxis Risk score (from Ns)>0 risk: 3 SCD applied (from Ns): Yes Lines/Catheters IV Catheter Type: Finch in Place: No Assessment/Plan Hospital Course Subjective Patient is back to baseline mentation per family members Objective Physical exam General: Patient is laying in bed and answers questions occasionally Mentation: Patient is alert and oriented to self at times, Head: Normocephalic atraumatic Eyes: EOMI, pupils reactive to light Neck: Supple, nontender, midline Respiratory: Clear to auscultation bilaterally Cardiovascular: regular rate, no obvious murmurs Gastrointestinal: non-tender to palpation, bowel sounds heard. Neurological: Moves all extremities spontaneously Skin: No new skin lesions Assessment and plan Acute encephalopathy, resolved, patient back at baseline per family -Neurology feels less likely encephalitis at this point, considerations do include recent CVA versus other viral issue -Due to possibility of recent stroke causing these issues, neurology not rec ommending aspirin, will give aspirin via rectum until patient passes swallow study. 100mg [place] daily due to awkward dosing of aspirin rectal suppository, when patient passes swallow study, neurology would like 81 mg orally daily. -cont emperic IV abx -EEG per neurology noted -Okay to defer LP for now per neurology -MRI when patient able to tolerate, currently moves too much fevers likely 2/2 PNA -Possibly secondary to above -Continue empiric treatment with IV antibiotics per infectious disease -Resolving Chronic contractures -Patient at baseline with chronic contractures, wound care as needed Anemia -Hemoglobin stable, monitor Alzheimer's dementia -Appears to be fairly severe, socially responsible investment adviser on board for numerous family issues Disposition -Follow-up with infectious disease and neurology recommendations -Patient work-up to continue, will need to work-up current inability to eat before discharge home. ROBINSON MCALLISTER Feb 10, 2019 13:06
[2019-02-10] MEDS: LEVOFLOXACIN 500MG/D5W (PMX) 100 ML IVPB SCH (13:48)
[2019-02-10] MEDS: AMLODIPINE 5 MG TAB PO SCH (13:50)
[2019-02-10 15:00] VITALS: BP 158/83; PULSE 94; RESP 19
[2019-02-10 20:00] VITALS: BP 130/63; PULSE 85; PULSE 95; RESP 19
[2019-02-11] VITALS: BP 131/69; PULSE 87; RESP 18
[2019-02-11 03:49] VITALS: BP 126/65; PULSE 80; RESP 18
[2019-02-11 07:30] VITALS: BP 136/73; PULSE 73; RESP 18
[2019-02-11] MEDS: ASPIRIN 81 MG TAB PO SCH (09:35)
[2019-02-11] MEDS: FAMOTIDINE 20 MG INJ IV SCH ×2 (09:35→21:19)
[2019-02-11] MEDS: AMLODIPINE 5 MG TAB PO SCH (09:35)
[2019-02-11] MEDS: CHLORHEXIDINE GLUCONATE 15 ML UD CUP MT SCH ×2 (09:36→21:19)
[2019-02-11 11:15] VITALS: BP 146/79; PULSE 87; RESP 19
--- NOTE | 2019-02-11 12:08 | CONS ---
Assessment/Plan Assessment/Plan Hospital Course (Demo Recall) ID PROGRESS NOTE CURRENT ABX: DAY # =>Levaquin s/p Vanco 24H INTERVAL SUMMARY * Awake, alert, responsive, resting in bed, no fevers, VSS, NAD - without dyspnea * Blood and urine cultures negative MRSA swab negative DIAGNOSTIC IMAGING * 02/09/19 CXR: IMPRESSION:Atelectasis versus minimal infiltrates in the left lower lobe.Subsegmental atelectasis in the right lower lung.Hyperexpanded lungs with diffuse mild interstitial prominence in both lungs. Interstitial prominence could be chronic. Findings could reflect COPD. Elevated right hemidiaphragm. * CT of the brain revealed no evidence of acute intracranial abnormality PHYSICAL EXAMINATION: GENERAL: VSS, NAD HEENT: AT, NC, NECK: Supple, CHEST: Rise symmetrical HEART: Pulse RRR ABDOMEN: EXTREMITIES: Warm, dry SKIN: No rash, no diaphoresis ID ASSESSMENT 78 yo F admit with: 1. Sepsis on admission w/fevers, increased neutrophils, tachycardia, lactic acidosis, elevated procalcitonin due to #2 2. COPD w/CXR concern for PNA 3. Acute encephalopathy w/possible SZS like activity on admission-> Resolving * EEG was without epileptiform activity. 4. Dementia ABX ALLERGIES: PCN INVASIVES: PIV CURRENT ABX: DAY # =>Levaquin s/p Vanco ID RECOMMENDATIONS/PLAN: 1.. Continue Levaquin 2. Repeat CXR . Consultation Date/Type/Reason Admit Date/Time Feb 05, 2019 at 13:45 Initial Consult Date Requesting Provider: NICHOLAS VALENCIA MD Date/Time of Note DATE: 02/11/19 TIME: 12:06 Exam/Review of Systems Exam Vitals Vital Signs Date Temp Pulse Resp B/P (MAP) Pulse Ox O2 O2 Flow FiO2 Time Delivery Rate 02/11/19 98.1 87 19 146/79 99 Room Air 11:15 (101) 02/09/19 2.0 20:00 Intake and Output 02/10/19 02/10/19 02/11/19 1414:59 22:59 06:59 IntakeIntake Total 400 ml 1100 ml BalanceBalance 400 ml 1100 ml Results Result Diagram: 02/11/19 0541 02/11/19 0541 Results 24hrs Laboratory Tests Test 02/11/19 05:41 White Blood Count 3.1 L Red Blood Count 2.77 L Hemoglobin 8.8 L Hematocrit 24.7 L Mean Corpuscular Volume 89.2 Mean Corpuscular Hemoglobin 31.8 Mean Corpuscular Hemoglobin Concent 35.6 Red Cell Distribution Width 12.0 Platelet Count 76 L Mean Platelet Volume 11.2 H Immature Granulocytes % 0.600 H Neutrophils % 55.3 Lymphocytes % 25.3 Monocytes % 13.0 H Eosinophils % 5.5 Basophils % 0.3 Nucleated Red Blood Cells % 0.0 Immature Granulocytes # 0.020 Neutrophils # 1.7 Lymphocytes # 0.8 Monocytes # 0.4 Eosinophils # 0.2 Basophils # 0.0 Nucleated Red Blood Cells # 0.0 Sodium Level 138 Potassium Level 3.5 Chloride Level 105 Carbon Dioxide Level 24 Anion Gap 9 Blood Urea Nitrogen 8 Creatinine 0.64 Est Glomerular Filtrat Rate mL/min Glucose Level 95 Calcium Level 7.9 L Phosphorus Level 3.8 Magnesium Level 1.8 Medications Medication Current Medications Dextrose/Sodium Chloride 1,000 ml @ 40 mls/hr Q24H IV Last administered on 02/10/19at 15:43; Admin Dose 75 MLS/HR; Start 02/05/19 at 15:42 IV Flush (NS 3 ml) 3 ml PER PROTOCOL IV ; Start 02/05/19 at 16:00 Ondansetron HCl (Zofran Inj) 4 mg Q6H PRN IV NAUSEA/VOMITING; Start 02/05/19 at 16:00 Acetaminophen (Tylenol Tab) 650 mg Q6H PRN PO .PAIN 1-3 OR TEMP; Start 02/05/19 at 16:00 Docusate Sodium (Colace) 100 mg Q12H PRN PO .CONSTIPATION; Start 02/05/19 at 16:00 Magnesium Hydroxide (Milk Of Mag) 30 ml DAILY PRN PO .CONSTIPATION; Start 02/05/19 at 16:00 Chlorhexidine Gluconate (Peridex) 15 ml BID MT Last administered on 02/11/19at 09:36; Admin Dose 15 ML; Start 02/05/19 at 21:00 Lorazepam (Ativan) 1 mg Q10MIN PRN IV seizures; Start 02/05/19 at 17:00 Acetaminophen (Tylenol Supp) 650 mg Q6H PRN [place] FEVER Last administered on 02/06/19at 00:53; Admin Dose 650 MG; Start 02/06/19 at 00:00 Famotidine (Pepcid Iv) 20 mg BID IV Last administered on 02/11/19 09:35; Admin Dose 20 MG; Start 02/09/19 at 21:00 Levofloxacin/ Dextrose 100 ml @ 100 mls/hr Q24H IVPB Last administered on 02/10/19at 13:48; Admin Dose 100 MLS/HR; Start 02/10/19 at 11:30 Amlodipine Besylate (Norvasc) 5 mg DAILY PO Last administered on 02/11/19at 09:35; Admin Dose 5 MG; Start 02/10/19 at 13:30 Aspirin (Aspirin) 81 mg DAILY PO Last administered on 02/11/19 09:35; Admin Dose 81 MG; Start 02/11/19 at 09:00 MELODY NAGEL NP Feb 11, 2019 12:07
[2019-02-11] MEDS: LEVOFLOXACIN 500MG/D5W (PMX) 100 ML IVPB SCH (12:36)
--- NOTE | 2019-02-11 14:40 | PN ---
Date/Time of Note Date/Time of Note DATE: 02/11/19 TIME: 14:39 Objective Vitals Vital Signs Date Temp Pulse Resp B/P (MAP) Pulse Ox O2 O2 Flow FiO2 Time Delivery Rate 02/11/19 98.1 87 19 146/79 99 Room Air 11:15 (101) 02/09/19 2.0 20:00 Intake and Output 02/10/19 02/10/19 02/11/19 1515:00 23:00 07:00 IntakeIntake Total 400 ml 1100 ml BalanceBalance 400 ml 1100 ml Results Result Diagram: 02/11/19 0541 02/11/19 05 Medications Medications Current Medications IV Flush (NS 3 ml) 3 ml PER PROTOCOL IV ; Start 02/05/19 at 16:00 Ondansetron HCl (Zofran Inj) 4 mg Q6H PRN IV NAUSEA/VOMITING; Start 02/05/19 at 16:00 Acetaminophen (Tylenol Tab) 650 mg Q6H PRN PO .PAIN 1-3 OR TEMP; Start 02/05/19 at 16:00 Docusate Sodium (Colace) 100 mg Q12H PRN PO .CONSTIPATION; Start 02/05/19 at 16:00 Magnesium Hydroxide (Milk Of Mag) 30 ml DAILY PRN PO .CONSTIPATION; Start 02/05/19 at 16:00 Chlorhexidine Gluconate (Peridex) 15 ml BID MT Last administered on 02/11/19at 09:36; Admin Dose 15 ML; Start 02/05/19 at 21:00 Lorazepam (Ativan) 1 mg Q10MIN PRN IV seizures; Start 02/05/19 at 17:00 Acetaminophen (Tylenol Supp) 650 mg Q6H PRN [place] FEVER Last administered on 02/06/19at 00:53; Admin Dose 650 MG; Start 02/06/19 at 00:00 Famotidine (Pepcid Iv) 20 mg BID IV Last administered on 02/11/19at 09:35; Admin Dose 20 MG; Start 02/09/19 at 21:00 Levofloxacin/ Dextrose 100 ml @ 100 mls/hr Q24H IVPB Last administered on 02/11/19at 12:36; Admin Dose 100 MLS/HR; Start 02/10/19 at 11:30 Amlodipine Besylate (Norvasc) 5 mg DAILY PO Last administered on 02/11/19at 09:35; Admin Dose 5 MG; Start 02/10/19 at 13:30 Aspirin (Aspirin) 81 mg DAILY PO Last administered on 02/11/19at 09:35; Admin Dose 81 MG; Start 02/11/19 at 09:00 VTE Prophylaxis Risk score (from Nsg)>0 risk: 5 SCD applied (from Ns): Yes Lines/Catheters IV Catheter Type: Finch in Place: No Assessment/Plan Hospital Course Subjective Patient is back to baseline mentation per family members Objective Physical exam General: Patient is laying in bed and answers questions occasionally Mentation: Patient is alert and oriented to self at times, Head: Normocephalic atraumatic Eyes: EOMI, pupils reactive to light Neck: Supple, nontender, midline Respiratory: Clear to auscultation bilaterally Cardiovascular: regular rate, no obvious murmurs Gastrointestinal: non-tender to palpation, bowel sounds heard. Neurological: Moves all extremities spontaneously Skin: No new skin lesions Assessment and plan Acute encephalopathy, resolved, patient back at baseline per family -Neurology feels less likely encephalitis at this point, considerations do include recent CVA versus other viral issue -Due to possibility of recent stroke causing these issues, neurology not recommending aspirin, will give aspirin via rectum until patient passes swallow study. 100mg [place] daily due to awkward dosing of aspirin rectal suppository, when patient passes swallow study, neurology would like 81 mg orally daily. -cont emperic IV abx -EEG per neurology noted -Okay to defer LP for now per neurology -MRI when patient able to tolerate, currently moves too much fevers likely 2/2 PNA -Possibly secondary to above -Continue empiric treatment with IV antibiotics per infectious disease -Resolving Chronic contractures -Patient at baseline with chronic contractures, wound care as needed Anemia -Hemoglobin stable, monitor Alzheimer's dementia -Appears to be fairly severe, psychologist social on board for numerous family issues Disposition -Follow-up with infectious disease and neurology recommendations -Patient work-up to continue, eating better now. ROBINSON MCALLISTER Feb 11, 2019 14:40
[2019-02-11 15:28] VITALS: BP 118/65; PULSE 97; RESP 20
[2019-02-11 20:00] VITALS: BP 111/57; PULSE 83; RESP 19
[2019-02-12] VITALS: BP 127/59; PULSE 81; RESP 19
[2019-02-12 04:00] VITALS: BP 139/65; PULSE 85; RESP 19
[2019-02-12 07:38] VITALS: BP 127/70; PULSE 93; RESP 18
[2019-02-12] MEDS: CHLORHEXIDINE GLUCONATE 15 ML UD CUP MT SCH ×3 (09:00→20:38)
[2019-02-12] MEDS ORDERED: POTASSIUM CHLORIDE 20 MEQ POWDER FOR ORAL SOLN PO ONE (09:30)
[2019-02-12] MEDS: ASPIRIN 81 MG TAB PO SCH (09:48)
[2019-02-12] MEDS: FAMOTIDINE 20 MG INJ IV SCH (09:48)
[2019-02-12] MEDS: AMLODIPINE 5 MG TAB PO SCH (09:48)
[2019-02-12 11:37] VITALS: BP 112/72; PULSE 83; RESP 18
[2019-02-12] MEDS: LEVOFLOXACIN 500MG/D5W (PMX) 100 ML IVPB SCH (11:57)
--- NOTE | 2019-02-12 13:32 | PN ---
Date/Time of Note Date/Time of Note DATE: 02/12/19 TIME: 13:31 Objective Vitals Vital Signs Date Temp Pulse Resp B/P (MAP) Pulse Ox O2 O2 Flow FiO2 Time Delivery Rate 02/12/19 98.0 83 18 112/72 98 Room Air 11:37 (85) 02/09/19 2.0 20:00 Intake and Output 02/11/19 02/11/19 02/12/19 1515:00 23:00 07:00 IntakeIntake Total 236 ml 200 ml 300 ml BalanceBalance 236 ml 200 ml 300 ml Results Result Diagram: 02/12/19 0452 02/12/19 0452 Medications Medications Current Medications IV Flush (NS 3 ml) 3 ml PER PROTOCOL IV ; Start 02/05/19 at 16:00 Ondansetron HCl (Zofran Inj) 4 mg Q6H PRN IV NAUSEA/VOMITING; Start 02/05/19 at 16:00 Acetaminophen (Tylenol Tab) 650 mg Q6H PRN PO .PAIN 1-3 OR TEMP; Start 02/05/19 at 16:00 Docusate Sodium (Colace) 100 mg Q12H PRN PO .CONSTIPATION; Start 02/05/19 at 16:00 Magnesium Hydroxide (Milk Of Mag) 30 ml DAILY PRN PO .CONSTIPATION; Start 02/05/19 at 16:00 Chlorhexidine Gluconate (Peridex) 15 ml BID MT Last administered on 02/12/19at 12:02; Admin Dose 15 ML; Start 02/05/19 at 21:00 Lorazepam (Ativan) 1 mg Q10MIN PRN IV seizures; Start 02/05/19 at 17:00 Acetaminophen (Tylenol Supp) 650 mg Q6H PRN [place] FEVER Last administered on 02/06/19at 00:53; Admin Dose 650 MG; Start 02/06/19 at 00:00 Famotidine (Pepcid Iv) 20 mg BID IV Last administered on 02/12/19at 09:48; Admin Dose 20 MG; Start 02/09/19 at 21:00 Levofloxacin/ Dextrose 100 ml @ 100 mls/hr Q24H IVPB Last administered on 02/12/19at 11:57; Admin Dose 100 MLS/HR; Start 02/10/19 at 11:30 Amlodipine Besylate (Norvasc) 5 mg DAILY PO Last administered on 02/12/19at 09:48; Admin Dose 5 MG; Start 02/10/19 at 13:30 Aspirin (Aspirin) 81 mg DAILY PO Last administered on 02/12/19at 09:48; Admin Dose 81 MG; Start 02/11/19 at 09:00 VTE Prophylaxis Risk score (from Nsg)>0 risk: 5 SCD applied (from Ns): Yes Lines/Catheters IV Catheter Type: Finch in Place: No Assessment/Plan Hospital Course Subjective Patient is back to baseline mentation per family members Objective Physical exam General: Patient is laying in bed and answers questions occasionally Mentation: Patient is alert and oriented to self at times, Head: Normocephalic atraumatic Eyes: EOMI, pupils reactive to light Neck: Supple, nontender, midline Respiratory: Clear to auscultation bilaterally Cardiovascular: regular rate, no obvious murmurs Gastrointestinal: non-tender to palpation, bowel sounds heard. Neurological: Moves all extremities spontaneously Skin: No new skin lesions Assessment and plan Acute encephalopathy, resolved, patient back at baseline per family -Neurology feels less likely encephalitis at this point, considerations do include recent CVA versus other viral issue -Due to possibility of recent stroke causing these issues, neurology not recommending aspirin, will give aspirin via rectum until patient passes swallow study. 100mg [place] daily due to awkward dosing of aspirin rectal suppository, when patient passes swallow study, neurology would like 81 mg orally daily. -cont emperic IV abx -EEG per neurology noted -Okay to defer LP for now per neurology -MRI outpatient when able, patient moving around too much on MRI attempt fevers likely 2/2 PNA -Possibly secondary to PNA vs other unknown etiology -Continue empiric treatment with IV antibiotics per infectious disease -Resolved Chronic contractures -Patient at baseline with chronic contractures, wound care as needed Anemia -Hemoglobin stable, monitor Alzheimer's dementia -Appears to be fairly severe, social media content manager on board for numerous family issues Disposition -Follow-up with infectious disease and neurology recommendations -Patient work-up to continue, eating better now. likely DC over the weekend if patient's eating continues to improve ROBINSON MCALLISTER Feb 12, 2019 13:32
[2019-02-12 15:20] VITALS: BP 109/58; PULSE 81; RESP 18
--- NOTE | 2019-02-12 16:36 | CONS ---
Assessment/Plan Assessment/Plan Hospital Course (Demo Recall) ID PROGRESS NOTE CURRENT ABX: DAY #7 =>Levaquin s/p Vanco 24H INTERVAL SUMMARY * Overall status much improved and she is taking POs * Awake, alert, responsive, resting in bed, no fevers, VSS, NAD - without dyspnea * DC PLANNING: Back home with HOSPICE care per notes DIAGNOSTIC IMAGING * 02/12/19 CXR: Persistent subtle asymmetric density within the left lower lung field which may reflect resolving atelectasis or infiltrate. * 02/09/19 CXR: IMPRESSION:Atelectasis versus minimal infiltrates in the left lower lobe.Subsegmental atelectasis in the right lower lung.Hyperexpanded lungs with diffuse mild interstitial prominence in both lungs. Interstitial prominence could be chronic. Findings could reflect COPD. Elevated right hemidiaphragm. * CT of the brain revealed no evidence of acute intracranial abnormality PHYSICAL EXAMINATION: GENERAL: VSS, NAD HEENT: AT, NC, NECK: Supple, CHEST: Rise symmetrical HEART: Pulse RRR ABDOMEN: EXTREMITIES: Warm, dry SKIN: No rash, no diaphoresis ID ASSESSMENT 78 yo F admit with: 1. Sepsis on admission w/fevers, increased neutrophils, tachycardia, lactic acidosis, elevated procalcitonin due to #2 => RESOLVED 2. COPD w/CXR concern for PNA vs ATX LLL persisting 3. Acute encephalopathy w/possible SZS like activity on admission-=> RESOLVED * EEG was without epileptiform activity. 4. Dementia ABX ALLERGIES: PCN INVASIVES: PIV CURRENT ABX: DAY #7 =>Levaquin s/p Vanco ID RECOMMENDATIONS/PLAN: 1. Taking POs -- change Levaquin to PO -- continue until primary team DC's her Home w/ Hospice 2. Repeat CXR demonstrates resolving LLL ATX/Infiltrate -- clinical status improvement proceeds radiology . Consultation Date/Type/Reason Admit Date/Time Feb 05, 2019 at 13:45 Initial Consult Date Requesting Provider: NICHOLAS VALENCIA MD Date/Time of Note DATE: 02/12/19 TIME: 16:27 Exam/Review of Systems Exam Vitals Vital Signs Date Temp Pulse Resp B/P (MAP) Pulse Ox O2 O2 Flow FiO2 Time Delivery Rate 02/12/19 98.0 81 18 109/58 94 Room Air 15:20 (75) 02/09/19 2.0 20:00 Intake and Output 02/11/19 02/11/19 02/12/19 1515:00 23:00 07:00 IntakeIntake Total 236 ml 200 ml 300 ml BalanceBalance 236 ml 200 ml 300 ml Results Result Diagram: 02/12/19 0452 02/12/19 0452 Results 24hrs Laboratory Tests Test 02/12/19 04:52 White Blood Count 3.2 L Red Blood Count 2.73 L Hemoglobin 8.8 L Hematocrit 24.9 L Mean Corpuscular Volume 91.2 Mean Corpuscular Hemoglobin 32.2 Mean Corpuscular Hemoglobin Concent 35.3 Red Cell Distribution Width 12.2 Platelet Count 108 #L Mean Platelet Volume 9.7 Immature Granulocytes % 0.900 H Neutrophils % 55.1 Lymphocytes % 27.2 Monocytes % 11.1 H Eosinophils % 5.4 Basophils % 0.3 Nucleated Red Blood Cells % 0.0 Immature Granulocytes # 0.030 Neutrophils # 1.7 Lymphocytes # 0.9 Monocytes # 0.4 Eosinophils # 0.2 Basophils # 0.0 Nucleated Red Blood Cells # 0.0 Sodium Level 139 Potassium Level 3.3 L Chloride Level 104 Carbon Dioxide Level 29 Anion Gap 6 Blood Urea Nitrogen 8 Creatinine 0.76 Est Glomerular Filtrat Rate mL/min Glucose Level 97 Calcium Level 8.1 L Phosphorus Level 3.4 Magnesium Level 1.9 Medications Medication Current Medications IV Flush (NS 3 ml) 3 ml PER PROTOCOL IV ; Start 02/05/19 at 16:00 Ondansetron HCl (Zofran Inj) 4 mg Q6H PRN IV NAUSEA/VOMITING; Start 02/05/19 at 16:00 Acetaminophen (Tylenol Tab) 650 mg Q6H PRN PO .PAIN 1-3 OR TEMP; Start 02/05/19 at 16:00 Docusate Sodium (Colace) 100 mg Q12H PRN PO .CONSTIPATION; Start 02/05/19 at 16:00 Magnesium Hydroxide (Milk Of Mag) 30 ml DAILY PRN PO .CONSTIPATION; Start 02/05/19 at 16:00 Chlorhexidine Gluconate (Peridex) 15 ml BID MT Last administered on 02/12/19at 12:02; Admin Dose 15 ML; Start 02/05/19 at 21:00 Lorazepam (Ativan) 1 mg Q10MIN PRN IV seizures; Start 02/05/19 at 17:00 Acetaminophen (Tylenol Supp) 650 mg Q6H PRN [place] FEVER Last administered on 02/06/19 00:53; Admin Dose 650 MG; Start 02/06/19 at 00:00 Famotidine (Pepcid Iv) 20 mg BID IV Last administered on 02/12/19 09:48; Admin Dose 20 MG; Start 02/09/19 at 21:00 Levofloxacin/ Dextrose 100 ml @ 100 mls/hr Q24H IVPB Last administered on 02/12/19 11:57; Admin Dose 100 MLS/HR; Start 02/10/19 at 11:30 Amlodipine Besylate (Norvasc) 5 mg DAILY PO Last administered on 02/12/19 09:48; Admin Dose 5 MG; Start 02/10/19 at 13:30 Aspirin (Aspirin) 81 mg DAILY PO Last administered on 02/12/19 09:48; Admin Dose 81 MG; Start 02/11/19 at 09:00 MELODY NAGEL NP Feb 12, 2019 16:36
[2019-02-12 20:00] VITALS: BP 130/62; PULSE 86; RESP 20
[2019-02-13] VITALS: BP 133/68; PULSE 97; RESP 18
[2019-02-13 04:00] VITALS: BP 142/66; PULSE 96; RESP 19
[2019-02-13] MEDS ORDERED: LEVOFLOXACIN 500 MG TAB PO ONE (06:00)
[2019-02-13 07:55] VITALS: BP 135/79; PULSE 79; RESP 18
[2019-02-13] MEDS: CHLORHEXIDINE GLUCONATE 15 ML UD CUP MT SCH ×2 (09:25→20:57)
[2019-02-13] MEDS: AMLODIPINE 5 MG TAB PO SCH (09:30)
[2019-02-13] MEDS: ASPIRIN 81 MG TAB PO SCH (09:30)
[2019-02-13] MEDS: FAMOTIDINE 20 MG TAB PO SCH (09:30)
[2019-02-13 11:19] VITALS: BP 139/65; PULSE 74; RESP 18
--- NOTE | 2019-02-13 12:41 | PN ---
Date/Time of Note Date/Time of Note DATE: 02/13/19 TIME: 12:40 Objective Vitals Vital Signs Date Temp Pulse Resp B/P (MAP) Pulse Ox O2 O2 Flow FiO2 Time Delivery Rate 02/13/19 98.0 74 18 139/65 100 Room Air 11:19 (89) 02/09/19 2.0 20:00 Intake and Output 02/12/19 02/12/19 02/13/19 1414:59 22:59 06:59 IntakeIntake Total 100 ml 700 ml OutputOutput Total 3 ml 1 ml BalanceBalance 100 ml 697 ml -1 ml Results Result Diagram: 02/13/19 0502 02/13/19 0502 Medications Medications Current Medications IV Flush (NS 3 ml) 3 ml PER PROTOCOL IV ; Start 02/05/19 at 16:00 Ondansetron HCl (Zofran Inj) 4 mg Q6H PRN IV NAUSEA/VOMITING; Start 02/05/19 at 16:00 Acetaminophen (Tylenol Tab) 650 mg Q6H PRN PO .PAIN 1-3 OR TEMP; Start 02/05/19 at 16:00 Docusate Sodium (Colace) 100 mg Q12H PRN PO .CONSTIPATION; Start 02/05/19 at 16:00 Magnesium Hydroxide (Milk Of Mag) 30 ml DAILY PRN PO .CONSTIPATION; Start 02/05/19 at 16:00 Chlorhexidine Gluconate (Peridex) 15 ml BID MT Last administered on 02/13/19at 09:25; Admin Dose 15 ML; Start 02/05/19 at 21:00 Lorazepam (Ativan) 1 mg Q10MIN PRN IV seizures; Start 02/05/19 at 17:00 Acetaminophen (Tylenol Supp) 650 mg Q6H PRN [place] FEVER Last administered on 02/06/19at 00:53; Admin Dose 650 MG; Start 02/06/19 at 00:00 Amlodipine Besylate (Norvasc) 5 mg DAILY PO Last administered on 02/13/19at 09:30; Admin Dose 5 MG; Start 02/10/19 at 13:30 Aspirin (Aspirin) 81 mg DAILY PO Last administered on 02/13/19at 09:30; Admin Dose 81 MG; Start 02/11/19 at 09:00 Levofloxacin (Levaquin) 250 mg DAILY@06 PO ; Start 02/14/19 at 06:00 Famotidine (Pepcid) 20 mg DAILY PO Last administered on 02/13/19at 09:30; Admin Dose 20 MG; Start 02/13/19 at 09:00 Atorvastatin Calcium (Lipitor) 40 mg HS PO ; Start 02/13/19 at 21:00 VTE Prophylaxis Risk score (from Ns)>0 risk: 7 SCD applied (from Ns): Yes Lines/Catheters IV Catheter Type: Finch in Place: No Assessment/Plan Hospital Course Subjective Patient is back to baseline mentation per family members Objective Physical exam General: Patient is laying in bed and answers questions occasionally Mentation: Patient is alert and oriented to self at times, Head: Normocephalic atraumatic Eyes: EOMI, pupils reactive to light Neck: Supple, nontender, midline Respiratory: Clear to auscultation bilaterally Cardiovascular: regular rate, no obvious murmurs Gastrointestinal: non-tender to palpation, bowel sounds heard. Neurological: Moves all extremities spontaneously Skin: No new skin lesions Assessment and plan Acute encephalopathy, resolved, patient back at baseline per family -Neurology feels less likely encephalitis at this point, considerations do include recent CVA versus other viral issue -Due to possibility of recent stroke causing these issues, neurology not recommending aspirin, will give aspirin via rectum until patient passes swallow study. 100mg [place] daily due to awkward dosing of aspirin rectal suppository, when patient passes swallow study, neurology would like 81 mg orally daily. -cont emperic abx -EEG per neurology noted -Okay to defer LP for now per neurology -MRI outpatient when able, patient moving around too much on MRI attempt fevers likely 2/2 PNA -Possibly secondary to PNA vs other unknown etiology -Continue empiric treatment with IV antibiotics per infectious disease -Resolved Chronic contractures -Patient at baseline with chronic contractures, wound care as needed Anemia -Hemoglobin stable, monitor Alzheimer's dementia -Appears to be fairly severe, social work program coordinator on board for numerous family issues Disposition -Follow-up with infectious disease and neurology recommendations -Patient work-up to continue, eating better now. likely DC over the weekend if patient's eating continues to improve ROBINSON MCALLISTER Feb 13, 2019 12:41
--- NOTE | 2019-02-13 15:17 | CONS ---
Assessment/Plan Assessment/Plan Hospital Course (Demo Recall) ID PROGRESS NOTE CURRENT ABX: DAY #8 =>Levaquin s/p Vanco 24H INTERVAL SUMMARY * CLINICALLY STABLE == DC PLANNING ON ABX -- Overall status much improved and she is taking POs * Awake, alert, responsive, resting in bed, no fevers, VSS, NAD - without dyspnea * DC PLANNING: Back home with HOSPICE care per notes DIAGNOSTIC IMAGING * 02/12/19 CXR: Persistent subtle asymmetric density within the left lower lung field which may reflect resolving atelectasis or infiltrate. * 02/09/19 CXR: IMPRESSION:Atelectasis versus minimal infiltrates in the left lower lobe.Subsegmental atelectasis in the right lower lung.Hyperexpanded lungs with diffuse mild interstitial prominence in both lungs. Interstitial prominence could be chronic. Findings could reflect COPD. Elevated right hemidiaphragm. * CT of the brain revealed no evidence of acute intracranial abnormality PHYSICAL EXAMINATION: GENERAL: VSS, NAD HEENT: AT, NC, NECK: Supple, CHEST: Rise symmetrical HEART: Pulse RRR ABDOMEN: EXTREMITIES: Warm, dry SKIN: No rash, no diaphoresis ID ASSESSMENT 78 yo F admit with: 1. Sepsis on admission w/fevers, increased neutrophils, tachycardia, lactic acidosis, elevated procalcitonin due to #2 => RESOLVED 2. COPD w/CXR concern for PNA vs ATX LLL persisting 3. Acute encephalopathy w/possible SZS like activity on admission-=> RESOLVED * EEG was without epileptiform activity. 4. Dementia ABX ALLERGIES: PCN INVASIVES: PIV CURRENT ABX: DAY #8 =>Levaquin s/p Vanco ID RECOMMENDATIONS/PLAN: 1. Taking POs -- change Levaquin to PO -- continue until primary team DC's her Home w/ Hospice 2. Repeat CXR demonstrates resolving LLL ATX/Infiltrate -- clinical status improvement proceeds radiology 3. WHEN CLEARED FOR DC HOME -> MAY DC HOME OFF ABX . Consultation Date/Type/Reason Admit Date/Time Feb 05, 2019 at 13:45 Initial Consult Date Requesting Provider: NICHOLAS VALENCIA MD Date/Time of Note DATE: 02/13/19 TIME: 15:15 Exam/Review of Systems Exam Vitals Vital Signs Date Temp Pulse Resp B/P (MAP) Pulse Ox O2 O2 Flow FiO2 Time Delivery Rate 02/13/19 98.0 74 18 139/65 100 Room Air 11:19 (89) 02/09/19 2.0 20:00 Intake and Output 02/12/19 02/12/19 02/13/19 1515:00 23:00 07:00 IntakeIntake Total 100 ml 700 ml OutputOutput Total 3 ml 1 ml BalanceBalance 100 ml 697 ml -1 ml Results Result Diagram: 02/13/19 0502 02/13/19 0502 Results 24hrs Laboratory Tests Test 02/13/19 05:02 White Blood Count 3.8 L Red Blood Count 2.77 L Hemoglobin 9.0 L Hematocrit 25.3 L Mean Corpuscular Volume 91.3 Mean Corpuscular Hemoglobin 32.5 Mean Corpuscular Hemoglobin Concent 35.6 Red Cell Distribution Width 12.2 Platelet Count 145 # Mean Platelet Volume 9.7 Immature Granulocytes % 0.500 H Neutrophils % 61.8 Lymphocytes % 22.5 Monocytes % 11.3 H Eosinophils % 3.4 Basophils % 0.5 Nucleated Red Blood Cells % 0.0 Immature Granulocytes # 0.020 Neutrophils # 2.4 Lymphocytes # 0.9 Monocytes # 0.4 Eosinophils # 0.1 Basophils # 0.0 Nucleated Red Blood Cells # 0.0 Sodium Level 139 Potassium Level 4.1 Chloride Level 103 Carbon Dioxide Level 29 Anion Gap 7 Blood Urea Nitrogen 11 Creatinine 0.77 Est Glomerular Filtrat Rate mL/min Glucose Level 103 Calcium Level 8.7 Phosphorus Level 3.5 Magnesium Level 2.0 Medications Medication Current Medications IV Flush (NS 3 ml) 3 ml PER PROTOCOL IV ; Start 02/05/19 at 16:00 Ondansetron HCl (Zofran Inj) 4 mg Q6H PRN IV NAUSEA/VOMITING; Start 02/05/19 at 16:00 Acetaminophen (Tylenol Tab) 650 mg Q6H PRN PO .PAIN 1-3 OR TEMP; Start 02/05/19 at 16:00 Docusate Sodium (Colace) 100 mg Q12H PRN PO .CONSTIPATION; Start 02/05/19 at 16:00 Magnesium Hydroxide (Milk Of Mag) 30 ml DAILY PRN PO .CONSTIPATION; Start 02/05/19 at 16:00 Chlorhexidine Gluconate (Peridex) 15 ml BID MT Last administered on 02/13/19at 09:25; Admin Dose 15 ML; Start 02/05/19 at 21:00 Lorazepam (Ativan) 1 mg Q10MIN PRN IV seizures; Start 02/05/19 at 17:00 Acetaminophen (Tylenol Supp) 650 mg Q6H PRN [place] FEVER Last administered on 02/06/19at 00:53; Admin Dose 650 MG; Start 02/06/19 at 00:00 Amlodipine Besylate (Norvasc) 5 mg DAILY PO Last administered on 02/13/19at 09: 30; Admin Dose 5 MG; Start 02/10/19 at 13:30 Aspirin (Aspirin) 81 mg DAILY PO Last administered on 02/13/19at 09:30; Admin Dose 81 MG; Start 02/11/19 at 09:00 Levofloxacin (Levaquin) 250 mg DAILY@06 PO ; Start 02/14/19 at 06:00 Famotidine (Pepcid) 20 mg DAILY PO Last administered on 02/13/19at 09:30; Admin Dose 20 MG; Start 02/13/19 at 09:00 Atorvastatin Calcium (Lipitor) 40 mg HS PO ; Start 02/13/19 at 21:00 MELODY NAGEL NP Feb 13, 2019 15:17
[2019-02-13 15:43] VITALS: BP 116/58; PULSE 80
[2019-02-13 20:15] VITALS: BP 127/91; PULSE 85; RESP 18
[2019-02-13] MEDS: ATORVASTATIN 40 MG TAB PO SCH (20:57)
[2019-02-14] VITALS: BP 120/58; PULSE 78; RESP 18
[2019-02-14 04:00] VITALS: BP 137/69; PULSE 81; RESP 18
[2019-02-14] MEDS: LEVOFLOXACIN 250 MG TAB PO SCH (06:34)
[2019-02-14 07:45] VITALS: BP 134/61; PULSE 86; RESP 20
[2019-02-14] MEDS: CHLORHEXIDINE GLUCONATE 15 ML UD CUP MT SCH ×2 (08:34→21:16)
[2019-02-14] MEDS: FAMOTIDINE 20 MG TAB PO SCH (08:34)
[2019-02-14] MEDS: AMLODIPINE 5 MG TAB PO SCH (08:34)
[2019-02-14] MEDS: ASPIRIN 81 MG TAB PO SCH (08:34)
[2019-02-14 11:06] VITALS: BP 123/59; PULSE 72; RESP 20
[2019-02-14] MEDS ORDERED: AMLO-145 PO (11:54)
[2019-02-14] MEDS ORDERED: ASPI-831 PO (11:54)
[2019-02-14] MEDS ORDERED: ATOR40TA68 PO (11:54)
--- NOTE | 2019-02-14 11:54 | DS ---
Date/Time of Note Date/Time of Note DATE: 02/14/19 TIME: 11:53 Discharge Summary Admission/Discharge Info Admit Date/Time Feb 05, 2019 at 13:45 Discharge Date/Time Patient Condition: Stable Hospital Course Patient is a elderly female with a past medical history significant for moderate to severe dementia who presents to [facility] for acute encephalopathy. Patient was seen by infectious disease and neurology and was originally thought to have some sort of encephalitis however upon quick resolution of patient's symptoms the diagnosis of encephalitis or other CSF issue was less likely and neurology for the suspected that patient may have had toxic metabolic encephalopathy secondary to pneumonia versus questionable seizure. Due to patient's quick resolution with antibiotics and diagnosis of likely pneumonia with fever it is highly likely patient's pneumonia because patient's acute encephalopathic issues. Patient is doing well now able to tolerate her diet and back to her baseline mentation and will be sent home to resume her home hospice. It was explained to the patient's granddaughter that an MRI is suggested outpatient however since patient is home hospice we will leave it up to the family to pursue MRI if needed. Patient is stable and will be sent home with home hospice. Patient completed 1 week course of antibiotics here in the hospital and will not be discharged home with additional antibiotics. Discharge diagnosis Acute encephalopathy, resolved Pneumonia, resolved Fevers, resolved Chronic contractures Anemia, chronic Alzheimer's dementia Home Meds Unable to Obtain Active Prescriptions or Reported Meds Primary Care Provider Not On Staff Doctor Time spent on discharge: > 30 minutes Pending Labs Laboratory Tests Test 02/14/19 05:09 White Blood Count 4.7 10^3/ul (4.8-10.8) Red Blood Count 2.96 10^6/ul (4.20-5.40) Hemoglobin 9.5 g/dl (12.0-16.0) Hematocrit 27.0 % (37.0-47.0) Mean Corpuscular Volume 91.2 fl (82.0-101.0) Mean Corpuscular Hemoglobin 32.1 pg (29.0-33.0) Mean Corpuscular Hemoglobin Concent 35.2 g/dl (32.0-37.0) Red Cell Distribution Width 12.2 % (11.5-14.5) Platelet Count 183 10^3/UL (140-415) Mean Platelet Volume 9.4 fl (7.4-10.4) Immature Granulocytes % 0.400 % (0.001-0.429) Neutrophils % 59.6 % (39.0-77.0) Lymphocytes % 25.4 % (15.0-51.0) Monocytes % 10.3 % (0.0-11.0) Eosinophils % 3.9 % (0.0-7.0) Basophils % 0.4 % (0.0-2.0) Nucleated Red Blood Cells % 0.0 /100WBC (0.0-0.0) Immature Granulocytes # 0.020 10^3/ul (0.0-0.031) Neutrophils # 2.8 10^3/ul (1.6-7.5) Lymphocytes # 1.2 10^3/ul (0.8-2.9) Monocytes # 0.5 10^3/ul (0.3-0.9) Eosinophils # 0.2 10^3/ul (0.0-0.5) Basophils # 0.0 10^3/ul (0.0-0.1) Nucleated Red Blood Cells # 0.0 10^3/ul (0.0-0.0) Sodium Level 139 mmol/L (135-144) Potassium Level 3.9 mmol/L (3.5-5.1) Chloride Level 103 mmol/L (97-110) Carbon Dioxide Level 29 mmol/L (21-31) Anion Gap 7 (5-13) Blood Urea Nitrogen 13 mg/dl (7-20) Creatinine 0.68 mg/dl (0.44-1.00) Est Glomerular Filtrat Rate mL/min mL/min (>60) Glucose Level 102 mg/dl (70-220) Calcium Level 8.6 mg/dl (8.4-10.2) Phosphorus Level 3.8 mg/dl (2.5-4.9) Magnesium Level 2.1 mg/dl (1.7-2.5) ROBINSON MCALLISTER Feb 14, 2019 11:53
--- NOTE | 2019-02-14 11:55 | PDOCDIS ---
Discharge Instructions CONDITION [id number] Patient Condition: [id number] Stable FOLLOW UP/APPOINTMENTS Follow-up Plan 1. Please follow recommendations of home hospice physician 2. Please follow-up with their primary care provider if needed to follow-up with MRI for possible storke/seizure causing patient's previous issues, prescriptions will be provided ROBINSON MCALLISTER Feb 14, 2019 11:55
[2019-02-14 15:17] VITALS: BP 136/104; PULSE 80; RESP 20
[2019-02-14 20:00] VITALS: BP 121/71; PULSE 78; RESP 18
[2019-02-14] MEDS: ATORVASTATIN 40 MG TAB PO SCH (21:16)
[2019-02-15] VITALS: BP 114/60; PULSE 76; RESP 18
[2019-02-15 04:00] VITALS: BP 114/56; PULSE 81; RESP 18
[2019-02-15] MEDS: LEVOFLOXACIN 250 MG TAB PO SCH (06:23)
[2019-02-15 07:35] VITALS: BP 128/71; PULSE 83; RESP 20
[2019-02-15] MEDS: ASPIRIN 81 MG TAB PO SCH (08:52)
[2019-02-15] MEDS: AMLODIPINE 5 MG TAB PO SCH (08:52)
[2019-02-15] MEDS: FAMOTIDINE 20 MG TAB PO SCH (08:52)
[2019-02-15] MEDS: CHLORHEXIDINE GLUCONATE 15 ML UD CUP MT SCH ×2 (08:52→22:07)
--- NOTE | 2019-02-15 09:50 | PN ---
Date/Time of Note Date/Time of Note DATE: 02/15/19 TIME: 09:50 Assessment/Plan VTE Prophylaxis Risk score (from Nsg)>0 risk: 6 SCD applied (from Nsg): Yes Pharmacological prophylaxis: other Lines/Catheters IV Catheter Type (from Nrsg): Saline Lock Urinary Cath still in place: No Assessment/Plan Assessment/Plan 1. Acute encephalopathy, resolved - Doing well and back to baseline. tolerating previous diet and responding to simple questions - Neurology consultation appreciated and recommending outpatient MRI - Continue on aspirin and statin given h/o CVA - EEG per neurology noted 2. LLL Pneumonia - completed course of antibiotics 3. Chronic contractures - Patient at baseline with chronic contractures, wound care as needed 4. Anemia - Hemoglobin stable, monitor 5. Alzheimer's dementia - stable - Appears to be fairly severe, case management social worker on board for numerous family issues 6. Disposition - Cleared for discharge home to resume home hospice services Result Diagram: 02/14/19 0509 02/14/19 0509 Subjective 24 Hr Interval Summary Free Text/Dictation Patient states shes doing fine and denies any issues. No acute overnight events. Plans for d/c home with hospice today. Exam/Review of Systems Exam Vitals Vital Signs Date Temp Pulse Resp B/P (MAP) Pulse Ox O2 O2 Flow FiO2 Time Delivery Rate 02/15/19 97.8 83 20 128/71 93 07:35 (90) 02/15/19 Room Air 04:00 02/14/19 21 19:54 Intake and Output 02/14/19 02/14/19 02/15/19 1515:00 23:00 07:00 IntakeIntake Total 350 ml 390 ml BalanceBalance 350 ml 390 ml Exam General: Patient is laying in bed and answers simple questions. no acute distress Mentation: Patient is alert and oriented to self Neck: Supple Respiratory: Clear to auscultation bilaterally. no wheezing Cardiovascular: regular rate and rhythm, no obvious murmurs Gastrointestinal: soft, non-tender to palpation, nondistended, bowel sounds heard. Skin: No new skin lesions Medications Medication Current Medications IV Flush (NS 3 ml) 3 ml PER PROTOCOL IV ; Start 02/05/19 at 16:00 Ondansetron HCl (Zofran Inj) 4 mg Q6H PRN IV NAUSEA/VOMITING; Start 02/05/19 at 16:00 Acetaminophen (Tylenol Tab) 650 mg Q6H PRN PO .PAIN 1-3 OR TEMP; Start 02/05/19 at 16:00 Docusate Sodium (Colace) 100 mg Q12H PRN PO .CONSTIPATION; Start 02/05/19 at 16:00 Magnesium Hydroxide (Milk Of Mag) 30 ml DAILY PRN PO .CONSTIPATION; Start 02/05/19 at 16:00 Chlorhexidine Gluconate (Peridex) 15 ml BID MT Last administered on 02/15/19 08:52; Admin Dose 15 ML; Start 02/05/19 at 21:00 Lorazepam (Ativan) 1 mg Q10MIN PRN IV seizures; Start 02/05/19 at 17:00 Acetaminophen (Tylenol Supp) [address] FEVER Last administered on 02/06/19 00:53; Admin Dose 650 MG; Start 02/06/19 at 00:00 Amlodipine Besylate (Norvasc) 5 mg DAILY PO Last administered on 02/15/19 08:52; Admin Dose 5 MG; Start 02/10/19 at 13:30 Aspirin (Aspirin) 81 mg DAILY PO Last administered on 02/15/19 08:52; Admin Dose 81 MG; Start 02/11/19 at 09:00 Levofloxacin (Levaquin) 250 mg DAILY@06 PO Last administered on 02/15/19 06:23; Admin Dose 250 MG; Start 02/14/19 at 06:00 Famotidine (Pepcid) 20 mg DAILY PO Last administered on 02/15/19 08:52; Admin Dose 20 MG; Start 02/13/19 at 09:00 Atorvastatin Calcium (Lipitor) 40 mg HS PO Last administered on 02/14/19 21:16; Admin Dose 40 MG; Start 02/13/19 at 21:00 NICHOLAS VALENCIA MD Feb 15, 2019 09:50
[2019-02-15 11:24] VITALS: BP 129/61; PULSE 77; RESP 20
[2019-02-15 15:36] VITALS: BP 126/66; PULSE 86; RESP 20
[2019-02-15 20:00] VITALS: BP 131/95; PULSE 86; RESP 18
[2019-02-15] MEDS: ATORVASTATIN 40 MG TAB PO SCH (22:07)
[2019-02-16] VITALS: BP 132/63; PULSE 88; RESP 18
[2019-02-16 04:00] VITALS: BP 136/79; PULSE 66; RESP 18
[2019-02-16 04:40] VITALS: BP 125/69; PULSE 79; RESP 18
[2019-02-16] MEDS: LEVOFLOXACIN 250 MG TAB PO SCH (06:12)
[2019-02-16] MEDS: ACETAMINOPHEN 650 MG SUPP PR PRN (06:53)
[2019-02-16 08:28] VITALS: BP 116/93; PULSE 91; RESP 18
[2019-02-16] MEDS: FAMOTIDINE 20 MG TAB PO SCH (09:26)
[2019-02-16] MEDS: AMLODIPINE 5 MG TAB PO SCH (09:26)
[2019-02-16] MEDS: ASPIRIN 81 MG TAB PO SCH (09:26)
[2019-02-16] MEDS: CHLORHEXIDINE GLUCONATE 15 ML UD CUP MT SCH (09:27)
--- NOTE | 2019-02-16 11:02 | PN ---
Date/Time of Note Date/Time of Note DATE: 02/16/19 TIME: 11:01 Assessment/Plan VTE Prophylaxis Risk score (from Ns)>0 risk: 7 SCD applied (from Ns): Yes Pharmacological prophylaxis: other Lines/Catheters IV Catheter Type (from Nrsg): Saline Lock Urinary Cath still in place: No Assessment/Plan Assessment/Plan 1. Acute encephalopathy, resolved - Doing well and back to baseline. - Neurology consultation appreciated and recommending outpatient MRI - Continue on aspirin and statin given h/o CVA - EEG per neurology noted 2. LLL Pneumonia - completed course of antibiotics 3. Chronic contractures - Patient at baseline with chronic contractures, wound care as needed 4. Anemia - Hemoglobin stable, monitor 5. Alzheimer's dementia - stable - Appears to be fairly severe, manager social media on board for numerous family issues 6. Disposition - Medically stable for discharge home Result Diagram: 02/14/19 0509 02/14/19 0509 Subjective 24 Hr Interval Summary Free Text/Dictation Patient is doing well and more talkative this am. No acute overnight events. Exam/Review of Systems Exam Vitals Vital Signs Date Temp Pulse Resp B/P (MAP) Pulse Ox O2 O2 Flow FiO2 Time Delivery Rate 02/16/19 98.1 91 18 116/93 95 Room Air 08:28 (101) 02/14/19 21 19:54 Intake and Output 02/15/19 02/15/19 02/16/19 1515:00 23:00 07:00 IntakeIntake Total 610 ml BalanceBalance 610 ml Exam General: Patient is laying in bed and answers simple questions. no acute distress Mentation: Patient is alert and oriented to self Respiratory: Clear to auscultation bilaterally. no wheezing Cardiovascular: regular rate and rhythm, no obvious murmurs Gastrointestinal: soft, non-tender to palpation, nondistended, bowel sounds heard. Skin: No new skin lesions Medications Medication Current Medications IV Flush (NS 3 ml) 3 ml PER PROTOCOL IV ; Start 02/05/19 at 16:00 Ondansetron HCl (Zofran Inj) 4 mg Q6H PRN IV NAUSEA/VOMITING; Start 02/05/19 at 16:00 Acetaminophen (Tylenol Tab) 650 mg Q6H PRN PO .PAIN 1-3 OR TEMP; Start 02/05/19 at 16:00 Docusate Sodium (Colace) 100 mg Q12H PRN PO .CONSTIPATION; Start 02/05/19 at 16:00 Magnesium Hydroxide (Milk Of Mag) 30 ml DAILY PRN PO .CONSTIPATION; Start 02/05/19 at 16:00 Chlorhexidine Gluconate (Peridex) 15 ml BID MT Last administered on 02/16/19 09:27; Admin Dose 15 ML; Start 02/05/19 at 21:00 Lorazepam (Ativan) 1 mg Q10MIN PRN IV seizures; Start 02/05/19 at 17:00 Acetaminophen (Tylenol Supp) 650 mg Q6H PRN [place] FEVER Last administered on 02/16/19 06:53; Admin Dose 650 MG; Start 02/06/19 at 00:00 Amlodipine Besylate (Norvasc) 5 mg DAILY PO Last administered on 02/16/19 09:26; Admin Dose 5 MG; Start 02/10/19 at 13:30 Aspirin (Aspirin) 81 mg DAILY PO Last administered on 02/16/19 09:26; Admin Dose 81 MG; Start 02/11/19 at 09:00 Levofloxacin (Levaquin) 250 mg DAILY@06 PO Last administered on 02/16/19 06:12; Admin Dose 250 MG; Start 02/14/19 at 06:00 Famotidine (Pepcid) 20 mg DAILY PO Last administered on 02/16/19 09:26; Admin Dose 20 MG; Start 02/13/19 at 09:00 Atorvastatin Calcium (Lipitor) 40 mg HS PO Last administered on 02/15/19 22:07; Admin Dose 40 MG; Start 02/13/19 at 21:00 NICHOLAS VALENCIA MD Feb 16, 2019 11:02
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
== END 2019-02-16 13:12 | disposition hospice, home (50) | DRG 70 ==
LOC: EDBD 11:00 → EEVIPCON 11:00 → E/R 11:00 → 6WM 13:45 → SUATTDRO 14:17 → MS1 02-16 04:27
PROVIDERS: ADMIT Internal Medicine; ATTEND Internal Medicine
DX: G93.40 Encephalopathy, unspecified (principal); J18.9 Pneumonia, unspecified organism; Z68.1 Body mass index [BMI] 19.9 or less, adult; E44.0 Moderate protein-calorie malnutrition; F03.90 Unspecified dementia, unspecified severity, without behavioral disturbance, psychotic disturbance, mood disturbance, and anxiety; M62.40 Contracture of muscle, unspecified site; D64.9 Anemia, unspecified; F02.80 Dementia in other diseases classified elsewhere, unspecified severity, without behavioral disturbance, psychotic disturbance, mood disturbance, and anxiety; J44.9 Chronic obstructive pulmonary disease, unspecified
CPT/HCPCS: 36415; 70450; 71045; 80048; 80053; 80069; 80202; 80307; 81001; 81003; 82962; 83605; 83735; 84100; 84132; 84145; 84436; 84479; 84484; 85014; 85018; 85025; 85610; 85730; 87081; 87086; 92526; 92610; 93005; 95819; 96374; 97163; 97166; J1630; J1650; J1956; J2060; J3370; J3480; J7030; J7040; J7042

== ENCOUNTER 2019-03-09 05:26 | Emergency (ER) | payer MEDICARE, MEDICAID ==
[~2019-03-09] VITALS: Ht 152.4 cm; Wt 36.0 kg
[~2019-03-09 05:26] MED LIST: AMLO-145 PO; ASPI-831 PO; ATOR40TA68 PO
[2019-03-09 05:32] VITALS: Ht 152.4 cm; Wt 36.0 kg
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
[2019-03-09 10:31] VITALS: BP 106/57; PULSE 82; RESP 18
== END 2019-03-09 10:56 | disposition home or self-care (01) ==
LOC: E/R 05:26
DX: F03.90 Unspecified dementia, unspecified severity, without behavioral disturbance, psychotic disturbance, mood disturbance, and anxiety (principal); M25.552 Pain in left hip; R41.82 Altered mental status, unspecified; Z79.82 Long term (current) use of aspirin
CPT/HCPCS: 70450; 72125; 73520; 73521